=== PATIENT | female | born 1955 | race Two or more races ===

== ENCOUNTER 2024-11-27 10:09 | Emergency (ER) | payer MEDICARE, SELFPAY ==
[2024-11-27 10:10] VITALS: BMI 42.2
[2024-11-27 10:17] VITALS: BP 210/98; BP 254/103; PULSE 82; RESP 18; TEMP 36.6; O2SAT 98
--- NOTE | 2024-11-27 10:21 | EKG_ITS ---
[facility] Test Date: 2024-11-27 Pat Name: PRABHU LANDIN Department: Room: - Gender: Female Director Integrated: : 1955 Requested By: Jeff Hernadez Order Number: [id number] Reading MD: Jeff Hernadez Measurements Intervals [place] Rate: 78 P: 27 GA: 172 QRS: 29 QRSD: 105 T: 61 QT: 355 QTc: 406 Interpretive Statements SINUS RHYTHM No previous ECG available for comparison /store/S0/[id number]/ecg/[id number].pdf
--- NOTE | 2024-11-27 10:23 | XR_ITS ---
Examination: PA lateral chest 2 views TECHNIQUE: Upright PA lateral chest 2 views Date and time: November 27, 2024 1032 hours Comparison August 09, 2023 INDICATIONS: Upper abdominal pain chest pain beginning today. FINDINGS: No significant cardiac enlargement Minor atelectasis in the lower lung zones No pneumonia or pulmonary edema IMPRESSION: Minor atelectasis in the lower lung zones
--- NOTE | 2024-11-27 10:24 | PD.EDRME ---
Rapid Medical Screening Exam RME Arrival date/time: 11/27/24 10:09 69-year-old female with a history of hypertension, type 2 diabetes, hyperlipidemia presents to the emergency room with a chief complaint of 8 out of 10 epigastric pain, vomiting x 2 days I have greeted and performed a focused initial assessment of this patient. A comprehensive ED assessment and evaluation of the patient, analysis of all test results, and completion of the medical decision making process will be conducted by additional ED providers. Chief Complaint: Abdominal Pain Time Seen by Provider: 11/27/24 10:14 Vital signs: Vital Signs Temperature 97.9 F 11/27/24 10:17 Pulse Rate 82 11/27/24 10:17 Respiratory Rate 18 11/27/24 10:17 Blood Pressure 210/98 H 11/27/24 10:17 Pulse Oximetry (%) 98 11/27/24 10:17 Oxygen Delivery Method Room Air 11/27/24 10:17 Vital signs reviewed by provider: Yes
[2024-11-27 10:49] VITALS: BP 210/98; PULSE 82
[2024-11-27] MEDS: cloNIDine HCL 0.1 MG TABLET 0.2 MG PO (10:49)
[2024-11-27] MEDS: MG HYD/AL HYD/SIME (Maalox Reg) SUSP 30 ML UDC PO (10:50)
[2024-11-27 11:09] LABS: Collection Type, Urine Clean Catch
[2024-11-27 11:20] LABS: Bilirubin,Urine Negative (Negative); Blood,Urine Negative (Negative); Clarity,Urine Clear (Clear/Hazy); Color,Urine Yellow (Lt Yel-Yel); Glucose, Urine Negative (Negative); Ketones,Urine Negative (Negative); Leukocyte Esterase,Urine Positive (Negative); Nitrite,Urine Negative (Negative); Protein,Urine Trace (Neg - Trace); RBC,Urine 6 /hpf (0-3); Specific Gravity,Urine 1.028 (1.001-1.035); Squamous Epithelial Cell,Urine 4 /hpf (0-5); WBC,Urine 3 /hpf (0-5)
[2024-11-27 11:30] LABS: Basophils # (Auto) 0.1 Thou/mm3 (0.0-0.2); Basophils % (Auto) 1 % (0-2.5); Eosinophils # (Auto) 0.2 Thou/mm3 (0.0-0.5); Eosinophils % (Auto) 3 % (0-10); Hematocrit 38.1 % (36.0-46.0); Immature Granulocytes % (Auto) 0 % (0-0); Immature Granulocytes Auto 0.03 Thou/mm3 (0.00-0.00); Lymphocytes # (Auto) 3.3 Thou/mm3 (1.0-4.8); Lymphocytes % (Auto) 35 % (10-50); Mean Corpuscular HGB Conc 34.1 g/dl (31.0-37.0); Mean Corpuscular Hemoglobin 31.6 pg (25.0-35.0); Mean Corpuscular Volume 93 fL (80-100); Monocytes # (Auto) 0.6 Thou/mm3 (0.0-0.8); Monocytes % (Auto) 6 % (0-12); Neutrophils # (Auto) 5.3 Thou/mm3 (1.8-7.7); Neutrophils % (Auto) 56 % (37-80); Nucleated Red Blood Cell % 0 /100 WBC (0); Platelet Count 227 Thou/mm3 (140-440); RDW Standard Deviation 45.4 fL (36.4-46.3); Red Blood Count 4.12 Miln/mm3 (4.00-5.20); White Blood Count 9.5 Thou/mm3 (3.6-11.0)
[2024-11-27 11:36] LABS: Partial Thromboplastin Time 25.7 Seconds (22.0-36.0); Prothrombin Time 10.9 Seconds (9.0-12.2)
[2024-11-27 11:37] LABS: B-Type Natriuretic Peptide 45 pg/mL (0-100)
[2024-11-27 11:50] LABS: Alanine Aminotransferase 15 U/L (10-49); Albumin, Serum 4.1 gm/dL (3.4-4.8); Albumin/Globulin Ratio 1.5 (1.2-2.2); Alkaline Phosphatase 124 U/L (46-116); Anion Gap 11 (7-16); BUN/Creatinine Ratio 18 Ratio (12-20); Bilirubin,Total 0.3 mg/dL (0.3-1.2); Blood Urea Nitrogen 14 mg/dL (9-23); Calcium 9.9 mg/dL (8.3-10.6); Calcium (Corrected) 9.9 mg/dL (8.5-10.1); Carbon Dioxide 28.2 mMol/L (20.0-31.0); Chloride 100 mMol/L (98-107); Creatinine (Component) 0.8 mg/dL (0.6-1.3); Estimated Creatinine Clearance 71.6 mL/min (>60); Globulin 2.7 gm/dL (2.3-3.5); Glucose 148 mg/dL (74-106); Osmolality,Calculated 281 (275-295); Potassium 3.8 mMol/L (3.4-5.1); Sodium 139 mMol/L (136-145); Total Protein 6.8 gm/dL (5.7-8.2); Troponin I < 0.020 ng/mL (0.0-0.045); eGFR > 60 See Note
[2024-11-27 11:53] LABS: Magnesium 0.9 mg/dL (1.6-2.6)
[2024-11-27 12:35] VITALS: BP 153/69; BP 210/98; PULSE 71; RESP 16; TEMP 36.5; O2SAT 96
--- NOTE | 2024-11-27 12:50 | XR_ITS ---
Examination: Duplex scan of the lower extremity, unilateral left complete Date and time of exam: November 27, 2024 1328 hours INDICATIONS: Left leg pain and swelling beginning 2 weeks ago, nonocclusive thrombus in the left common femoral vein left profunda proximal left superficial femoral and popliteal veins on Doppler April 06, 2018 Technique: Duplex scan of the extremity veins using B-mode/grayscale imaging and Doppler spectral analysis and color flow Attention is directed to internal echogenicity, compression and augmentation involving these veins, color flow assessment, spectral analysis Findings: Positive for nonocclusive thrombus in the left common femoral vein 3 cm popliteal cyst IMPRESSION: Positive for nonocclusive thrombus in the left common femoral vein
--- NOTE | 2024-11-27 12:50 | XR_ITS ---
Examination: CT abdomen with intravenous contrast CT pelvis with intravenous contrast 2-D coronal reconstructions 2-D sagittal reconstructions Date and time of exam:November 27, 2024 1409 hours Comparison July 30, 2023 INDICATIONS: Upper abdominal pain nausea vomiting today. CTDI: vol (mGy) 13.3 DLP: (mGycm) 778 Technique: Multiple axial sections of the abdomen and pelvis have been obtained. 64 slice high-resolution scanner used. 3 mm axial sections have been obtained, post intravenous injection 60 cc [id number] 2-D sagittal, coronal reconstructions obtained. Low dose protocols were performed. One or more of the following dose reduction techniques were used; automated exposure control, adjustment of the mA and/or KV according to patient size, use of iterative reconstruction technique. Findings: No focal liver or splenic lesions No gallstones No pancreatic or adrenal mass No renal or ureteral calculi Small benign lower pole right renal cyst No bowel obstruction Absent appendix Small fat-containing umbilical hernia No colonic diverticulosis Atrophic uterus Urinary bladder intact Prominent osteopenia IMPRESSION: No acute process in the abdomen or pelvis
--- NOTE | 2024-11-27 12:55 | PD.EDABDPN ---
ED Abdominal Pain RME/HPI General Chief Complaint: Abdominal Pain Stated complaint: DIZZY, CHILL, ABD PAIN Time seen by provider: 11/27/24 10:14 Arrival date/time: 11/27/24 10:09 Limitations: no limitations RME / HPI RME / HPI narrative: 11/27/24 10:09 69-year-old female with a history of hypertension, type 2 diabetes, hyperlipidemia presents to the emergency room with a chief complaint of 8 out of 10 epigastric pain, vomiting x 2 days I have greeted and performed a focused initial assessment of this patient. A comprehensive ED assessment and evaluation of the patient, analysis of all test results, and completion of the medical decision making process will be conducted by additional ED providers. 69-year-old female with a history of hypertension, type 2 diabetes, hyperlipidemia presents to the emergency room with a chief complaint of 8 out of 10 epigastric pain, vomiting x 2 days. Also hx xarelto 20mg for dvt x 2 about 6yrs ago. States has a known clot stuck in her femoral that she is aware of. However has some bruising to her left leg that made her worried that she has a new clot. Does have a history of appendectomy but otherwise no abdominal surgeries. No chest pain or shortness of breath. Related Data Home Medications ?Medication ?Instructions ?Recorded ?Confirmed sitagliptin phosphate 50 1 tab PO BID 02/13/18 12/31/19 mg-metformin 1,000 mg tablet (Janumet) diltiazem HCl 60 mg tablet 60 mg PO BID 11/04/19 12/31/19 gabapentin 300 mg capsule 300 mg PO TID 11/04/19 12/31/19 propranolol 10 mg tablet 25 mg PO QDAY 11/04/19 12/31/19 rivaroxaban 20 mg tablet (Xarelto) 20 mg PO QDAY 11/04/19 12/31/19 losartan 50 mg tablet 50 mg PO QDAY 12/31/19 12/31/19 Previous Rx's ?Medication ?Instructions ?Recorded citalopram 20 mg tablet 20 mg PO QDAY #14 tabs 09/27/18 ciprofloxacin HCl 500 mg tablet 500 mg PO BID #14 tabs 06/16/23 acetaminophen 500 mg capsule 1,000 mg (2 x 500 mg) PO TID #30 07/30/23 caps dextromethorphan-guaifenesin 10 10 ml PO Q8H PRN cough #500 mL 07/30/23 mg-100 mg/5 mL oral liquid azithromycin 250 mg tablet See Rx Instructions PO .COMPLEX #6 08/10/23 tabs benzonatate 100 mg capsule 100 mg PO TID PRN cough #10 caps 08/10/23 dicyclomine 10 mg capsule 10 mg PO TID #30 caps 11/27/24 ondansetron 4 mg disintegrating 4 mg PO QDAY #10 tabs 11/27/24 tablet pantoprazole 40 mg tablet,delayed 40 mg PO QDAY #30 tabs 11/27/24 release (Protonix) Allergies Allergy/AdvReac Type Severity Reaction Status Date / Time codeine Allergy Severe Anxiety Verified 08/09/23 19:23 hydrocodone Allergy Severe Anxiety Verified 08/09/23 19:23 Review of Systems Review of Systems Systems Reviewed: All systems reviewed, normal except as documented Constitutional Constitutional: Denies fever(s) Gastrointestinal Gastrointestinal: Reports as per HPI Genitourinary Genitourinary: Denies urinary frequency Musculoskeletal Musculoskeletal: Reports as per HPI Hematologic/Lymphatic Hematologic/Lymphatic: Reports as per HPI ED Exam General Limitations: Present no limitations General appearance: Present alert and in no apparent distress Eye Eye exam: Present normal appearance, PERRL and EOMI Respiratory Respiratory exam: Present normal lung sounds bilaterally Cardiovascular Cardiovascular exam: Present regular rate, normal rhythm and normal heart sounds Abdominal Exam Abdominal exam: Present soft, tenderness (Nonspecific TTP diffuse no rebound, surgical scar noted; ) and normal bowel sounds Extremities Exam Extremities exam: Present full ROM and tenderness (Left medial ankle with ecchymosis and TTP) Back Exam Back exam: Present normal inspection and full ROM Psychiatric Psychiatric exam: Present normal affect and normal mood Skin Skin exam: Present warm, dry, intact and normal color Course Quality Measures none Orders Category Date Time Status CT Screening NOW Care 11/27/24 12:51 Completed EKG (ED ONLY) *Do not use* NOW Care 11/27/24 10:21 Completed IV [Insert IV] NOW Care 11/27/24 12:[address] abdomen pelvis w con Stat Exams 11/27/24 12:50 Completed EKG (ED Only) Stat Exams 11/27/24 10:21 Draft US venous doppler LE LT Stat Exams 11/27/24 12:50 Completed XR chest 2V Stat Exams 11/27/24 10:23 Completed B-Type Natriuretic Peptide Stat Lab 11/27/24 10:46 Completed CBC Stat Lab 11/27/24 10:46 Completed Comprehensive Metabolic Panel Stat Lab 11/27/24 10:46 Completed Magnesium Stat Lab 11/27/24 10:46 Completed Partial Thromboplastin Time Stat Lab 11/27/24 10:46 Completed Prothrombin Time with INR Stat Lab 11/27/24 10:46 Completed Troponin I Stat Lab 11/27/24 10:46 Completed Urinalysis Stat Lab 11/27/24 11:03 Completed HYDROmorphone INJ [Dilaudid Inj] Med 11/27/24 16:07 Discontinued 0.5 mg IVP X1 ONE Magnesium Sulfate 1 gm Ivpb [Magnesium Sulfate Ivpb] Med 11/27/24 12:54 Discontinued 1 gm in 100 ml IV X1 Morphine Inj Med 11/27/24 12:52 Discontinued 4 mg IVP X1 ONE Sodium Chloride 0.9% 1000 ml [Ns] 1,000 ml Med 11/27/24 12:50 Discontinued IV 999 mls/hr cloNIDine HCL [Catapres] Med 11/27/24 10:23 Discontinued 0.2 mg PO X1 ONE mg Hyd/Al Hyd/Joel Susp [Maalox Susp] Med 11/27/24 10:23 Discontinued 30 ml PO X1 ONE Vital Signs Vital signs: Vital Signs Temperature 97.9 F 11/27/24 10:17 Pulse Rate 82 11/27/24 10:17 Respiratory Rate 18 11/27/24 10:17 Blood Pressure 210/98 H 11/27/24 10:17 Pulse Oximetry (%) 98 11/27/24 10:17 Oxygen Delivery Method Room Air 11/27/24 10:17 Procedures -ED EKG Interpretation #1: Date of EK11/27/24 Time of EK:24 Rate: 78 Interpretation: Interpreted by me EKG Impression: Normal sinus rhythm, No acute ST-T changes and No ectopy Abdominal Pain MDM MDM Narrative MDM Narrative:: 69-year-old patient on blood thinners with multiple concerns. Including epigastric pain. CT scan showed renal cyst but otherwise no surgical abdomen negative for ACS negative for DVT. Patient data External records reviewed:: [facility] previous records Clinical information provided by:: patient and family Social determinants that could affect healthcare access:: other (specify) (PCP appointment on the weekend,) Patient has the following chronic illnesses:: Diabetes, hyperlipidemia, on blood thinners How is presenting disease/condition affected by chronic disease/condition?: exacerbated by Evaluation data The following diagnostics were reviewed and interpreted by me:: lab results and radiology exam(s) Lab and/or radiology exams considered but not ordered:: CTA of chest was considered given history of DVT however no new DVT noted today Interpretation Summary: CBC within normal limits, CMP did show hypomagnesemia likely from vomiting, UA was suggestive of possible UTI, Doppler did not show any new DVT but old known findings to femoral vein. Medications / Prescriptions Medications or Prescriptions considered but not ordered:: Narcotics were considered for home however due to side effect profile avoided Medication administrations:: Medication Administration History Discontinued Medications Al Hydrox/Mg Hydrox/Simethicone (Mg Hyd/Al Hyd/Joel (Maalox Reg) Susp 30 Ml Udc) 30 ml PO X1 ONE Stop: 11/27/24 10:24 Last Admin: 11/27/24 10:50 Dose: 30 ml Documented By: JLUIS Clonidine (Clonidine Hcl 0.1 Mg Tablet) 0.2 mg PO X1 ONE Stop: 11/27/24 10:24 Last Admin: 11/27/24 10:49 Dose: 0.2 mg Documented By: JLUIS Hydromorphone HCl (Hydromorphone Inj 2 Mg/Ml Vial) 0.5 mg IVP X1 ONE Stop: 11/27/24 16:08 Last Admin: 11/27/24 16:22 Dose: 0.5 mg Documented By: MUARLI Sodium Chloride (Ns) 1,000 mls @ 999 mls/hr IV .Q1H1M ONE Stop: 11/27/24 13:50 Last Infusion: 11/27/24 15:50 Dose: Infused Documented By: Admin: 11/27/24 14:28 Dose: 999 mls/hr Documented By: MURALI Magnesium Sulfate/Dextrose (Magnesium Sulfate Ivpb) 1 gm in 100 mls @ 100 mls/hr IV X1 ONE Stop: 11/27/24 13:53 Last Infusion: 11/27/24 15:50 Dose: Infused Documented By: Admin: 11/27/24 14:28 Dose: 100 mls/hr Documented By: MURALI Morphine Sulfate (Morphine Sulf Inj 10 Mg/Ml Vial) 4 mg IVP X1 ONE Stop: 11/27/24 12:53 Last Admin: 11/27/24 14:28 Dose: 4 mg Documented By: MURALI Medications for home given Consultations Consultation(s) initiated? (list below): No Diagnosis Differential diagnosis abdominal pain: abdominal pain, calculus of kidney, constipation, diverticulitis, endometriosis, gastroenteritis and pancreatitis Most likely diagnosis given after review of the tests above:: Gastritis Abdominal pain Diabetes Long-term anticoagulant use Hypomagnesemia Admission Indicated Admission indicated?: not indicated Admission Request Was there a request for admission?: No Disposition Plan Disposition Plan: Discharge Discharge Attestation Discharge Attestation: The patient and all family members were given an opportunity to ask questions and understood the discharge instructions. Discharge instructions specifically effects, indications for sooner follow up or return to the emergency department, and the expected course of current diagnosis. Patient condition: Stable Discharge Plan Plan Patient Disposition: HOME (Self Care) Discharge Disposition comment: Follow-up with PCP in 2 to 3 days Patient condition on transfer: Stable Prescriptions/Referrals Prescriptions/Med Rec: New pantoprazole [Protonix] 40 mg tablet,delayed release (DR/EC) 40 mg PO QDAY Qty: 30 0RF ondansetron 4 mg tablet,disintegrating 4 mg PO QDAY Qty: 10 0RF dicyclomine 10 mg capsule 10 mg PO TID Qty: 30 0RF No Action Janumet 50-1,000 mg Tablet 1 tab PO BID citalopram 20 mg tablet 20 mg PO QDAY Qty: 14 0RF propranolol 10 mg Tablet 25 mg PO QDAY gabapentin 300 mg Capsule 300 mg PO TID diltiazem HCl 60 mg Tablet 60 mg PO BID Xarelto 20 mg Tablet 20 mg PO QDAY losartan 50 mg tablet 50 mg PO QDAY azithromycin 250 mg tablet See Rx Instructions .ROUTE .COMPLEX Qty: 6 0RF Rx Instructions: For 250 mg dose pack: take 500 mg today (day 1), then 250 mg for 4 days (days 2-5) benzonatate 100 mg capsule 100 mg PO TID PRN (Reason: cough) Qty: 10 0RF ciprofloxacin HCl 500 mg tablet 500 mg PO BID Qty: 14 0RF dextromethorphan-guaifenesin 10-100 mg/5 mL liquid 10 ml PO Q8H PRN (Reason: cough) Qty: 500 0RF acetaminophen 500 mg capsule 1,000 mg PO TID Qty: 30 0RF Referrals: Mariia Beckford PA-C [Primary Care Provider] - In 1 week Problem List Clinical Impression: Abdominal pain, epigastric, Hypomagnesemia, Vomiting, Renal cyst, History of DVT (deep vein thrombosis) Patient/Caregiver Discharge Instructions Education Materials: ED Diet for Vomiting or ..., ED Epigastric Pain (Uncertain Cause) Print Language: Sami Stand Alone Forms: Demi Award Info., Patient Portal Info Letter PA/[employer]ITE MANAGER Supervising Physician PA/[employer]ITE MANAGER Supervising Physician: Dr. Salamanca
[2024-11-27] MEDS: Magnesium Sulfate 1 gm Ivpb 1 GM/100 ML BAG IV (14:28)
[2024-11-27] MEDS: SODIUM CHLORIDE 0.9% 1000 ML 1,000 ML 999 ML IV (14:28)
[2024-11-27] MEDS: MORPHINE SULF INJ 10 MG/ML VIAL 4 MG IVP (14:28)
[2024-11-27 16:14] VITALS: BP 144/60; PULSE 68; RESP 17; TEMP 36.3; O2SAT 95
[2024-11-27] MEDS: HYDROmorphone INJ 2 MG/ML VIAL 0.5 MG IVP (16:22)
== END 2024-11-27 16:39 | disposition home or self-care (01) ==
PROVIDERS: Nurse Practitioner Family; Emergency Provider Family Medicine; PCP Physician Assistant
DX: N28.1 Cyst of kidney, acquired (principal); E83.42 Hypomagnesemia; I82.412 Acute embolism and thrombosis of left femoral vein; R11.10 Vomiting, unspecified; R10.13 Epigastric pain; R07.9 Chest pain, unspecified; I10 Essential (primary) hypertension; E78.5 Hyperlipidemia, unspecified; Z79.01 Long term (current) use of anticoagulants
CPT/HCPCS: 36415; 71046; 74177; 80053; 81001; 83735; 83880; 84484; 85025; 85610; 85730; 93005; 93971; 96365; 96375; 99285; A4649; J1171; J2270; J3475; J7030; Q9967; A9270

== ENCOUNTER 2024-11-30 09:07 | Inpatient (IN) | payer MEDICARE, MEDICAID, SELFPAY ==
[2024-11-30] VITALS (34 sets, daily range): BP systolic 159–275; BP diastolic 66–137; PULSE 81–126; RESP 11–88; TEMP 36.6–37.7; O2SAT 85–96; BMI 42.2
--- NOTE | 2024-11-30 09:26 | PD.EDADULT ---
ED General RME/HPI General Chief complaint: Abdominal Pain Stated complaint: SOB, BODY ACHES, N/V, ABD PAIN; STARTED Time Seen by Provider: 11/30/24 09:11 Arrival date/time: 11/30/24 09:07 Limitations: no limitations RME / HPI RME / HPI narrative: DR. HARVEY MAIN ED EVALUATION: 69 year old female with past medical history significant for hypertension presents to the Emergency Department with complaint of epigastric abdominal pain. She was seen on 11/27/24 for the same symptoms. She mentions that she has epigastric pain when she breaths. No other symptoms reported at this time. Related Data Home Medications ?Medication ?Instructions ?Recorded ?Confirmed sitagliptin phosphate 50 1 tab PO BID 02/13/18 12/31/19 mg-metformin 1,000 mg tablet (Janumet) diltiazem HCl 60 mg tablet 60 mg PO BID 11/04/19 12/31/19 gabapentin 300 mg capsule 300 mg PO TID 11/04/19 12/31/19 rivaroxaban 20 mg tablet (Xarelto) 20 mg PO QDAY 11/04/19 12/01/24 losartan 50 mg tablet 50 mg PO QDAY 12/31/19 12/31/19 furosemide 40 mg tablet 40 mg PO QDAY 12/01/24 12/01/24 insulin glargine 100 unit/mL (3 30 unit subcut HS 12/01/24 12/01/24 mL) subcutaneous pen (Lantus Solostar U-100 Insulin) levothyroxine 25 mcg tablet 25 mcg PO QDAY 12/01/24 12/01/24 propranolol 20 mg tablet 20 mg PO QDAY 12/01/24 12/01/24 semaglutide 0.25 mg or 0.5 mg (2 0.25 mg subcut .q wednesday12/01/24 12/01/24 mg/3 mL) subcutaneous pen injector (Ozempic) Previous Rx's ?Medication ?Instructions ?Recorded citalopram 20 mg tablet 20 mg PO QDAY #14 tabs 09/27/18 ciprofloxacin HCl 500 mg tablet 500 mg PO BID #14 tabs 06/16/23 acetaminophen 500 mg capsule 1,000 mg (2 x 500 mg) PO TID #30 07/30/23 caps dextromethorphan-guaifenesin 10 10 ml PO Q8H PRN cough #500 mL 07/30/23 mg-100 mg/5 mL oral liquid azithromycin 250 mg tablet See Rx Instructions PO .COMPLEX #6 08/10/23 tabs benzonatate 100 mg capsule 100 mg PO TID PRN cough #10 caps 08/10/23 dicyclomine 10 mg capsule 10 mg PO TID #30 caps 11/27/24 ondansetron 4 mg disintegrating 4 mg PO QDAY #10 tabs 11/27/24 tablet pantoprazole 40 mg tablet,delayed 40 mg PO QDAY #30 tabs 11/27/24 release (Protonix) Allergies Allergy/AdvReac Type Severity Reaction Status Date / Time codeine Allergy Severe Anxiety Verified 11/30/24 09:11 hydrocodone Allergy Severe Anxiety Verified 11/30/24 09:11 Review of Systems Review of Systems Systems Reviewed: All systems reviewed, normal except as documented Narrative Review of Systems: GEN: No fever, no chills, no weight loss EYES: No discharge, no visual changes, no pain HEENT: No ear pain, no congestion, no sore throat PULM: No shortness of breath, no cough, no congestion CV: No chest pain, no dyspnea on exertion, no palpitations GI: No nausea, no vomiting, no diarrhea, + abdominal pain, no constipation : No frequency, no urgency and no dysuria MUSC/SKEL: No joint pain, no back pain SKIN: No rash PSYCH: No hallucinations, no depression HEME/LYMPH: No easy bleeding or bruising tendencies NEURO: No weakness, no headache Past Medical History Past Medical History CARDIAC: Positive Hypercholesterolemia, Edema, Deep Vein Thrombosis and Hypertension GASTROINTESTINAL: Positive Gastrointestinal Disorders, Gastroesophageal Reflux Disease and Obesity MUSCULOSKELETAL: Positive Musculoskeletal Disorders and Arthritis ENDOCRINE: Positive Endocrine Disorders and Diabetes Mellitus Type 2 PSYCHO/SOCIAL: Positive Depression and Anxiety Family History FAMILY HISTORY: Positive Family Surgery Surgical History SURGICAL: Positive Abdominal Surgery and Section Social History SMOKING STATUS: Never smoker SECOND HAND EXPOSURE: No SUBSTANCE USE: does not use ALCOHOL: Never ED Exam General Limitations: Present no limitations General appearance: Present alert and in no apparent distress Head Head exam: Present atraumatic, normocephalic and normal inspection Eye Eye exam: Present normal appearance, PERRL and EOMI ENT ENT exam: Present normal exam, normal oropharynx and mucous membranes moist Neck Neck exam: Present normal inspection, full ROM and trachea midline Chest Chest inspection: Present normal inspection and symmetric chest wall rise Respiratory Respiratory exam: Present normal lung sounds bilaterally Cardiovascular Cardiovascular exam: Present regular rate, normal rhythm and normal heart sounds Abdominal Exam Abdominal exam: Present tenderness (diffuse abdominal pain), normal bowel sounds and hyperactive bowel sounds Extremities Exam Extremities exam: Present normal inspection and full ROM Back Exam Back exam: Present normal inspection and full ROM Neurological Exam Neurological exam: Present alert, oriented X3 and CN II-XII intact Psychiatric Psychiatric exam: Present normal affect and normal mood Skin Skin exam: Present warm, dry, intact and normal color Course Quality Measures none Orders Category Date Time Status Electric Bath Attendant STAT Care 11/30/24 09:25 Active Insert IV STAT Care 11/30/24 09:25 Active CBC Stat Lab 11/30/24 09:40 Completed Comprehensive Metabolic Panel Stat Lab 11/30/24 09:40 Completed Lipase Stat Lab 11/30/24 09:40 Completed Magnesium Stat Lab 11/30/24 09:40 Completed Urinalysis Stat Lab 11/30/24 10:51 Completed Diltiazem Inj [Cardizem Inj] Med 11/30/24 14:56 Discontinued 25 mg IV X1 ONE Enalaprilat Inj [Vasotec Inj] Med 11/30/24 10:58 Discontinued 2.5 mg IVP X1 ONE Magnesium Sulfate 1 gm Ivpb [Magnesium Sulfate Ivpb] Med 11/30/24 10:59 Discontinued 1 gm in 100 ml IV X1 Metoprolol Tartrate Inj [Lopressor Inj] Med 11/30/24 09:28 Discontinued 2.5 mg IVP X1 ONE Metoprolol Tartrate Inj [Lopressor Inj] Med 11/30/24 10:34 Discontinued 5 mg IVP X1 ONE Morphine Inj Med 11/30/24 14:24 Discontinued 5 mg IVP X1 ONE Nicardipine/Ns 20Mg Ivpb [Cardene Ivpb] Med 11/30/24 16:05 Discontinued 20 mg in 200 ml IV 5 mg/hr Ondansetron Inj [Zofran Inj] Med 11/30/24 09:25 Discontinued 4 mg IVP Q1H PRN Sodium Chloride 0.9% 1000 ml [Ns] 1,000 ml Med 11/30/24 09:25 Discontinued IV 999 mls/hr fentaNYL INJ [Sublimaze Inj] Med 11/30/24 09:27 Discontinued 25 mcg IVP X1 ONE hydrALAZINE INJ [Apresoline Inj] Med 11/30/24 12:20 Discontinued 20 mg IVP X1 ONE Vital Signs Vital signs: Vital Signs Temperature 99.8 F 11/30/24 09:18 Pulse Rate 126 H 11/30/24 09:18 Respiratory Rate 18 11/30/24 09:18 Blood Pressure 194/129 H 11/30/24 09:18 Pulse Oximetry (%) 95 11/30/24 09:18 Oxygen Delivery Method Room Air 11/30/24 09:18 Critical Care Time Critical Care Time Critical Care Time: Yes Total Critical Care Time (min.): 45 Attestation: AGE Discharge Plan Plan Patient Disposition: Admit Acute Care w/in Hospital Patient condition on transfer: Stable Problem List Clinical Impression: Asymptomatic hypertensive urgency, Acute gastroenteritis MDM Narrative [facility] hospital course: I, Missy Munson am scribing for and in the presence of Dr. Harvey. Clinical Information Provided by patient other: Despite several doses of antihypertensive medications of different classes, patient's BP remained high. Eventually had to start Nicardipine drip. Her epigastric pain responded well to Morphine. Medical Records Reviewed [facility] Meds/Rx Considered, not Ordered None Labs/Rad/Tests considered, not Ordered None Chronic Illness/Social Conditions Add or document further as needed: hypertension Medication Administration(s) Medication Administration History Acetaminophen (Acetaminophen 325 Mg Tablet) 650 mg PO Q6H PRN PRN Reason: Fever >99.5 Stop: 12/30/24 20:02 Acetaminophen (Acetaminophen 325 Mg Tablet) 1,000 mg PO Q6H PRN PRN Reason: PAIN SCALE 1-3 (mild Stop: 12/30/24 20:02 Dextrose (Dextrose 50%-Water Inj 50 Ml Syringe) 25 ml IV Q15MIN PRN PRN Reason: BG 50-70 responsive npo pt Stop: 12/30/24 20:26 Dextrose (Dextrose 50%-Water Inj 50 Ml Syringe) 50 ml IV Q15MIN PRN PRN Reason: BG <50 OR BG <70 & pt unresponsive Stop: 12/30/24 20:26 Diltiazem HCl (Diltiazem Cd 120 Mg Capcr) 120 mg PO BID ANA LILIA Stop: 12/30/24 20:14 Last Admin: 11/30/24 20:32 Dose: 120 mg Documented By: BD Furosemide (Furosemide Inj 10 Mg/Ml 4ml Vial) 40 mg IVP QDAY [facility] Stop: 12/31/24 08:59 Gabapentin (Gabapentin 300 Mg Capsule) 300 mg PO TID [facility] Stop: 12/30/24 21:59 Last Admin: 12/01/24 05:05 Dose: Not Given Documented By: MLD Non-Admin Reason: Patient Refused Admin: 11/30/24 22:09 Dose: Not Given Documented By: BD Non-Admin Reason: Patient Refused Glucagon (Glucagon Inj 1 Mg Vial) 1 mg IM Q15MIN PRN PRN Reason: BG <70, and no IV access Heparin Sodium/Dextrose (Heparin In D5w Ivpb) 25,000 unit in 250 mls @ 17.636 mls/hr IV .[id number] [facility]; Protocol Stop: 12/14/24 20:14 Last Titration: 12/01/24 05:07 Dose: 16 units/kg/hr, 15.676 mls/hr Documented By: DONNA Co-signed By: ANNETTA Admin: 11/30/24 22:09 Dose: 18 units/kg/hr, 17.636 mls/hr Documented By: ISIAH Co-signed By: CORTES Insulin Human Lispro (Insulin Lispro (Admelog) 1 Unit/0.01 Ml Unit) 0 unit [facility]; Protocol Stop: 12/31/24 07:29 Labetalol HCl (Labetalol Inj 5 Mg/Ml Vial 20 Ml) 10 mg IVP Q4H PRN PRN Reason: SBP>190 Stop: 12/30/24 20:07 Levothyroxine Sodium (Levothyroxine Sodium 25 Mcg Tablet) [facility] Stop: 12/31/24 05:59 Last Admin: 12/01/24 05:05 Dose: 25 mcg Documented By: MLD Losartan Potassium (Losartan Potassium 25 Mg Tablet) 50 mg PO QDAY [facility] Stop: 12/30/24 20:14 Last Admin: 11/30/24 20:32 Dose: 50 mg Documented By: BD Morphine Sulfate (Morphine Sulf Inj 10 Mg/Ml Vial) 2 mg IVP Q4H PRN PRN Reason: PAIN SCALE 4-10(Mod-Sev Stop: 12/05/24 20:02 Last Admin: 11/30/24 22:50 Dose: 2 mg Documented By: ISIAH Ondansetron HCl (Ondansetron Inj 2 Mg/Ml Inj 2 Ml) 4 mg IVP Q6H PRN; Protocol PRN Reason: NAUSEA OR VOMITING Stop: 12/30/24 20:02 Pantoprazole Sodium (Pantoprazole Inj 40 Mg Vial) 40 mg IVP QDAY [facility] Stop: 12/31/24 08:59 Propranolol HCl (Propranolol Cr 60 Mg Capcr) 20 mg PO QDAY [facility] Stop: 12/31/24 00:19 Discontinued Medications Diltiazem HCl (Diltiazem Inj 5 Mg/Ml Vial 5 Ml) 25 mg IV X1 ONE Stop: 11/30/24 14:57 Last Admin: 11/30/24 15:12 Dose: 25 mg Documented By: DB Enalaprilat (Enalaprilat Inj 1.25 Mg/Ml Vial) 2.5 mg IVP X1 ONE Stop: 11/30/24 10:59 Last Admin: 11/30/24 11:21 Dose: 2.5 mg Documented By: SLY Fentanyl Citrate (Fentanyl Cit Inj 50 Mcg/Ml Amp 2ml) 25 mcg IVP X1 ONE Stop: 11/30/24 09:28 Last Admin: 11/30/24 09:47 Dose: 25 mcg Documented By: SLY Heparin Sodium (Porcine) (Heparin Sod Inj 5000 Unit/Ml Vial) 7,850 unit 80 unit/kg (7850 unit) IV X1 ONE; Protocol Stop: 11/30/24 20:04 Last Admin: 11/30/24 22:07 Dose: 7,850 unit Documented By: ISIAH Co-signed By: CORTES Hydralazine HCl (Hydralazine Inj 20 Mg/Ml Vial) 20 mg IVP X1 ONE Stop: 11/30/24 12:21 Last Admin: 11/30/24 12:27 Dose: 20 mg Documented By: SLY Sodium Chloride (Ns) 1,000 mls @ 999 mls/hr IV .Q1H1M ONE Stop: 11/30/24 10:25 Last Infusion: 11/30/24 10:49 Dose: Infused Documented By: Admin: 11/30/24 09:41 Dose: 999 mls/hr Documented By: VG Magnesium Sulfate/Dextrose (Magnesium Sulfate Ivpb) 1 gm in 100 mls @ 100 mls/hr IV X1 ONE Stop: 11/30/24 11:58 Last Infusion: 11/30/24 12:34 Dose: Infused Documented By: Admin: 11/30/24 11:22 Dose: 100 mls/hr Documented By: VG Nicardipine/Sodium Chloride (Cardene Ivpb) 20 mg in 200 mls @ 50 mls/hr IV .Q4H PRN; Protocol PRN Reason: PER PROTOCOL Stop: 12/30/24 16:04 Last Titration: 11/30/24 18:15 Dose: Infused Documented By: Titration: 11/30/24 18:10 Dose: 3 mg/hr, 30 mls/hr Documented By: Titration: 11/30/24 18:05 Dose: 3 mg/hr, 30 mls/hr Documented By: Titration: 11/30/24 18:00 Dose: 3 mg/hr, 30 mls/hr Documented By: Titration: 11/30/24 17:55 Dose: 15 mg/hr, 150 mls/hr Documented By: Titration: 11/30/24 17:50 Dose: 15 mg/hr, 150 mls/hr Documented By: Titration: 11/30/24 17:45 Dose: 15 mg/hr, 150 mls/hr Documented By: Titration: 11/30/24 17:40 Dose: 15 mg/hr, 150 mls/hr Documented By: Titration: 11/30/24 17:35 Dose: 13 mg/hr, 130 mls/hr Documented By: Titration: 11/30/24 17:30 Dose: 10.5 mg/hr, 105 mls/hr Documented By: Titration: 11/30/24 17:25 Dose: 8 mg/hr, 80 mls/hr Documented By: Titration: 11/30/24 17:20 Dose: 5.5 mg/hr, 55 mls/hr Documented By: Titration: 11/30/24 17:10 Dose: 3 mg/hr, 30 mls/hr Documented By: Titration: 11/30/24 17:05 Dose: 15 mg/hr, 150 mls/hr Documented By: Titration: 11/30/24 17:00 Dose: 12.5 mg/hr, 125 mls/hr Documented By: Titration: 11/30/24 16:55 Dose: 10 mg/hr, 100 mls/hr Documented By: Titration: 11/30/24 16:50 Dose: 7.5 mg/hr, 75 mls/hr Documented By: Admin: 11/30/24 16:45 Dose: 5 mg/hr, 50 mls/hr Documented By: VG Magnesium Sulfate (Magnesium Sulfate Ivpb) 4 gm in 50 mls @ 12.5 mls/hr IV X1 ONE Stop: 12/01/24 00:14 Last Admin: 11/30/24 22:14 Dose: 12.5 mls/hr Documented By: BD Magnesium Sulfate (Magnesium Sulfate Ivpb) 2 gm in 50 mls @ 25 mls/hr IV X1 ONE Stop: 11/30/24 22:14 Last Infusion: 11/30/24 22:08 Dose: Infused Documented By: Admin: 11/30/24 20:32 Dose: 25 mls/hr Documented By: BD Labetalol HCl (Labetalol Inj 5 Mg/Ml Vial 20 Ml) 10 mg IVP Q6H PRN PRN Reason: SBP>190 Stop: 12/30/24 20:14 Metoprolol Tartrate (Metoprolol Tartrate Inj 1 Mg/Ml Amp 5 Ml) 2.5 mg IVP X1 ONE Stop: 11/30/24 09:29 Last Admin: 11/30/24 09:49 Dose: 2.5 mg Documented By: SLY Metoprolol Tartrate (Metoprolol Tartrate Inj 1 Mg/Ml Amp 5 Ml) 5 mg IVP X1 ONE Stop: 11/30/24 10:35 Last Admin: 11/30/24 10:47 Dose: 5 mg Documented By: DB Morphine Sulfate (Morphine Sulf Inj 10 Mg/Ml Vial) 5 mg IVP X1 ONE Stop: 11/30/24 14:25 Last Admin: 11/30/24 14:38 Dose: 5 mg Documented By: DB Morphine Sulfate (Morphine Sulf Inj 10 Mg/Ml Vial) 1 mg IVP X1 ONE Stop: 12/01/24 01:59 Last Admin: 12/01/24 02:08 Dose: 1 mg Documented By: MLFaisal Ondansetron HCl (Ondansetron Inj 2 Mg/Ml Inj 2 Ml) 4 mg IVP Q1H PRN PRN Reason: PERSISTENT NAUSEA OR VOMITING Last Admin: 11/30/24 18:53 Dose: 4 mg Documented By: Admin: 11/30/24 09:52 Dose: 4 mg Documented By: SLY Diagnosis Differential diagnosis: GERD, gastritis, gallbladder disease Dispositon Disposition: Admit
[2024-11-30] MEDS: SODIUM CHLORIDE 0.9% 1000 ML 1,000 ML 999 ML IV (09:41)
[2024-11-30] MEDS: fentaNYL CIT INJ 50 mCg/ML AMP 2ML 25 MCG IVP (09:47)
[2024-11-30] MEDS: METOPROLOL TARTRATE INJ 1 MG/ML AMP 5 ML 2.5 MG IVP (09:49)
[2024-11-30 09:52] LABS: Basophils % (Auto) 0 % (0-2.5); Eosinophils % (Auto) 0 % (0-10); Hematocrit 39.1 % (36.0-46.0); Hemoglobin 13.3 g/dL (12.0-16.0); Immature Granulocytes % (Auto) 0 % (0-0); Immature Granulocytes Auto 0.02 Thou/mm3 (0.00-0.00); Lymphocytes # (Auto) 1.1 Thou/mm3 (1.0-4.8); Lymphocytes % (Auto) 16 % (10-50); Mean Corpuscular Volume 94 fL (80-100); Monocytes # (Auto) 0.4 Thou/mm3 (0.0-0.8); Monocytes % (Auto) 6 % (0-12); Neutrophils # (Auto) 5.5 Thou/mm3 (1.8-7.7); Neutrophils % (Auto) 77 % (37-80); Nucleated Red Blood Cell % 0 /100 WBC (0); Platelet Count 183 Thou/mm3 (140-440); RDW Standard Deviation 46.1 fL (36.4-46.3); Red Blood Count 4.15 Miln/mm3 (4.00-5.20); White Blood Count 7.1 Thou/mm3 (3.6-11.0)
[2024-11-30] MEDS: ONDANSETRON INJ 2 MG/ML INJ 2 ML 4 MG IVP ×2 (09:52→18:53)
[2024-11-30 10:29] LABS: Alanine Aminotransferase 27 U/L (10-49); Albumin, Serum 4.3 gm/dL (3.4-4.8); Albumin/Globulin Ratio 1.7 (1.2-2.2); Alkaline Phosphatase 127 U/L (46-116); Anion Gap 10 (7-16); BUN/Creatinine Ratio 13 Ratio (12-20); Bilirubin,Total 0.4 mg/dL (0.3-1.2); Blood Urea Nitrogen 10 mg/dL (9-23); Calcium 9.8 mg/dL (8.3-10.6); Calcium (Corrected) 9.8 mg/dL (8.5-10.1); Carbon Dioxide 27.6 mMol/L (20.0-31.0); Chloride 98 mMol/L (98-107); Creatinine (Component) 0.8 mg/dL (0.6-1.3); Globulin 2.5 gm/dL (2.3-3.5); Glucose 196 mg/dL (74-106); Lipase 41 U/L (12-53); Osmolality,Calculated 275 (275-295); Potassium 3.9 mMol/L (3.4-5.1); Sodium 136 mMol/L (136-145); Total Protein 6.8 gm/dL (5.7-8.2); eGFR > 60 See Note
[2024-11-30 10:37] LABS: Magnesium 0.8 mg/dL (1.6-2.6)
[2024-11-30] MEDS: METOPROLOL TARTRATE INJ 1 MG/ML AMP 5 ML 5 MG IVP (10:47)
[2024-11-30 11:03] LABS: Collection Type, Urine Clean Catch
[2024-11-30 11:08] LABS: Bilirubin,Urine Negative (Negative); Blood,Urine Negative (Negative); Clarity,Urine Clear (Clear/Hazy); Color,Urine Lt-Yellow (Lt Yel-Yel); Glucose, Urine Negative (Negative); Ketones,Urine Negative (Negative); Leukocyte Esterase,Urine Negative (Negative); Nitrite,Urine Negative (Negative); PH,Urine 6.5 (5.0-7.0); Protein,Urine Negative (Neg - Trace); RBC,Urine < 1 /hpf (0-3); Specific Gravity,Urine 1.014 (1.001-1.035); Squamous Epithelial Cell,Urine 2 /hpf (0-5); Urobilinogen,Urine Negative mg/dL (0.0-1.0); WBC,Urine 2 /hpf (0-5)
[2024-11-30] MEDS: ENALAPRILAT INJ 1.25 MG/ML VIAL 2.5 MG IVP (11:21)
[2024-11-30] MEDS: Magnesium Sulfate 1 gm Ivpb 1 GM/100 ML BAG IV (11:22)
[2024-11-30] MEDS: hydrALAZINE INJ 20 MG/ML VIAL IVP (12:27)
--- NOTE | 2024-11-30 14:30 | PC.NURSE ---
pt reports continued upper abd pain, provider notified. orders received.
[2024-11-30] MEDS: MORPHINE SULF INJ 10 MG/ML VIAL 5 MG IVP (14:38)
[2024-11-30] MEDS: DILTIAZEM INJ 5 MG/ML VIAL 5 ML 25 MG IV (15:12)
[2024-11-30] MEDS: NICARDIPINE/NS 20MG IVPB 20 MG/200 ML BAG 50 MG IV (16:45)
--- NOTE | 2024-11-30 18:15 | PC.NURSE ---
DR BARRETO AT BEDSIDE. PER DR BARRETO, STOP NICARDIPINE DRIP. SPOKE WITH DR BARRETO ABOUT PTS UPPER ABD PAIN, LOW O2 SATS, AND PAST VISIT RESULTS. PER DR BARRETO, WILL PASS ON TO ADMITTING TEAM FOR FURTHER WORKUP.
--- NOTE | 2024-11-30 18:31 | EVENTNT_ITS ---
<Statement entered by Burke Barreto MD - 12/01/24 09:26> I reviewed the resident?s note and agree with findings and plan as documented in the resident?s note. resident discussed case with me OTP. When evaluated in ED pt was off nicardipine - no headache, chest pain or new SOB no acute ICU interventions planned if pt condition changes and meets ICU criteria - I informed resident to accept pt to ICU Documentation for date of: 11/30/24 Event Note Event Note: Patient is a 69-year-old female seen in the ED with a blood pressure of 275/103. Patient was treated with multiple antihypertensives including labetalol, hydralazine and nicardipine drip. Patient's blood pressure dropped from 275 systolic to 150?160s systolic with nicardipine drip. In the ED, patient's blood pressure changes in 24 hours have been > 25 x 30% Recommendation: Discontinue nicardipine drip at this time, therefore will not need ICU admission. Goal BP 180-190 systolic over next 24 hours. Of note, duplex ultrasound from 11/27/2024 was remarkable for femoral thrombosis. Patient has been tachycardic in the ED HR 110?120s bpm, with intermittent hypoxia. Recommendation: Consider anticoagulation and PE workup with CTA chest. Medical floor teams to admit patient, ED physician was informed. Patient to be admitted to telemetry for hypertensive management and PE workup. Plan discussed with bolt threader Dr. Barreto, ? Frank Leavitt MD PGY 2
--- NOTE | 2024-11-30 20:03 | XR_ITS ---
Examination: CTA chest with intravenous contrast 2-D reconstructions 3-D reconstructions, vascular Date and time of exam: Using 12 2024 and 15 p.m. INDICATIONS: Shortness of breath chest pain today CTDI: vol (mGy) 42 DLP: (mGycm) 606 Technique: Multiple axial sections of the thorax have been obtained. 3 mm slice thickness, from below the hemidiaphragms to above the apices of the lungs. Mediastinal and lung density settings have been obtained. 2-D sagittal and coronal reconstructions. 3-D angiographic renderings, 3-D volume renderings, 3D post processing, vascular maximum intensity projections obtained. Contrast administered is 100 cc Isovue 370. Low dose protocols were performed. One or more of the following dose reduction techniques were used; automated exposure control, adjustment of the mA and/or KV according to patient size, use of iterative reconstruction technique. Findings: No thoracic aortic aneurysm dilatation or dissection Moderate thoracic spondylosis No pulmonary artery filling defects No paratracheal tracheobronchial or bronchopulmonary adenopathy Mild vascular congestion. No lobar pneumonia or dora pulmonary edema No visualized liver or splenic lesion No pancreatic mass. IMPRESSION: Negative for pulmonary artery emboli. Mild vascular congestion No lobar pneumonia or pulmonary edema
--- NOTE | 2024-11-30 20:03 | ECHO_ITS ---
Transthoracic Echo Report Ht (in): 60 Wt (lb): 216 Exam Location: Echo Lab Status: Emergency Lead Software Architect: Doris Pitt Indications: Procedure Performed: BP: 132 / 71 HR: 97 Technical Quality: Technically difficult study MEASUREMENTS (Male / Female) Normal Values 2D ECHO LV Diastolic Diameter PLAX 3.9 cm 4.2 - 5.9 / 3.9 - 5.3 cm LV Systolic Diameter PLAX 2.9 cm IVS Diastolic Thickness 1.5 cm 0.6 - 1.0 / 0.6 - 0.9 cm LVPW Diastolic Thickness 1.4 cm 0.6 - 1.0 / 0.6 - 0.9 cm LV Relative Wall Thickness 0.7 LVOT Diameter 1.7 cm Aortic Root Diameter 2.8 cm LA Systolic Diameter LX 3.1 cm 3.0 - 4.0 / 2.7 - 3.8 cm LA Volume Index 17.7 cm?/m? 16 - 28 cm?/m? M-MODE Aortic Root Diameter MM 2.6 cm LA Systolic Diameter MM 3.5 cm LA Ao Ratio MM 1.3 AV Cusp Separation MM 1.8 cm DOPPLER AV Peak Velocity 138.0 cm/s AV Peak Gradient 7.6 mmHg AV Mean Gradient 4.0 mmHg AV Velocity Time Integral 25.6 cm LVOT Peak Velocity 123.0 cm/s LVOT Peak Gradient 6.1 mmHg LVOT Velocity Time Integral 25.0 cm LVOT Cardiac Index 2627.7 cm?/min?m? AV Area Cont Eq vti 2.2 cm? AV Area Cont Eq pk 2.0 cm? MV Area PHT 3.1 cm? Mitral E Point Velocity 39.3 cm/s Mitral A Point Velocity 65.5 cm/s Mitral E to A Ratio 0.6 LV E' Lateral Velocity 6.0 cm/s Mitral E to LV E' Lateral Ratio 6.6 LV E' Septal Velocity 4.6 cm/s Mitral E to LV E' Septal Ratio 8.6 TR Peak Velocity 186.0 cm/s TR Peak Gradient 13.8 mmHg FINDINGS Left Ventricle Normal left ventricular size,systolic function with no obvious regional wall motion abnormalities. Moderate LVH. There is grade I diastolic dysfunction of the left ventricle (impaired relaxation pattern). The ejection fraction is visually estimated at 55-60 %. Right Ventricle The right ventricle is normal in size and systolic function. Left Atrium The left atrium is normal by two-dimensional, color flow and Doppler imaging with no structural abnormalities, no thrombus formation present. Right Atrium The right atrium is normal by two-dimensional imaging, color flow and Doppler imaging with no structural abnormalities, no thrombus formation present. Atrial Septum The interatrial septum appears normal with no evidence of a shunt. Aorta The aorta is normal by two-dimensional, color flow and Doppler interrogation. Mitral Valve The mitral valve is normal by two-dimensional, color flow and Doppler interrogation. There is no significant mitral valve regurgitation, stenosis or prolapse. Aortic Valve The aortic valve is trileaflet and normal by two-dimensional, color flow and Doppler interrogation. There is no significant aortic valve regurgitation. Tricuspid Valve The tricuspid valve is normal by two-dimensional, color flow and Doppler interrogation. There is trace tricuspid valve regurgitation. Pulmonic Valve The pulmonic valve is not well visualized. There is no significant pulmonic valve regurgitation. Vessels Inferior vena cava not well visualized. Pericardium The pericardium is normal by two-dimensional imaging. There is no significant pericardial effusion. CONCLUSIONS Indication: Hx of CHF Normal LV size. Moderate LVH. There is grade I diastolic dysfunction of the left ventricle. Estimated EF at 55-60 %. The RV is normal in size and systolic function. Trace TR. Kusum Chavez (Electronically Signed) Final Date: 02 December 2024 00:27
--- NOTE | 2024-11-30 20:21 | PD.RESHP ---
Documentation for date of: 11/30/24 [facility] History of Present Illness Chief complaint: Hypertensive emergency History of present illness: 69-year-old female with past medical history of diabetes, hypertension, arthritis, hypothyroidism who presented to the ED due to abdominal pain. Patient states abdominal pain rated 8 out of 10 across the whole abdomen. Patient states she gets this abdominal pain every time her blood pressure is elevated. When asked about her blood pressure at home she says usually her blood pressure at home is between 170 and 180 systolic. Patient states that she is compliant with all her medications. Patient also states some associated chills, nausea but no vomiting as well as a headache. Patient states she came to the ER few days ago for similar symptoms, was found with DVT on November 27 was taking Xarelto and is currently complaining of shortness of breath. At this time patient denies chest pain, palpitations, orthopnea, PND, vomiting, recent travel, sick contacts. ED course: ED vitals: BP 194/129, HR 126, saturating 95% on room air ED labs: CBC unremarkable, glucose 196, magnesium 0.8, UA negative PMHx: As above SX Hx: , appendectomy, knee and hand surgery Social Hx: Denies cigarette use, denies alcohol use, denies illicit substances including THC FH X: Unknown Review of Systems Review of Systems Systems Reviewed: All systems reviewed, normal except as documented Narrative Review of Systems: All 12 systems were reviewed and found negative unless otherwise stated in the HPI Exam Vital Signs Temp Pulse Resp BP Pulse Ox O2 Del Method O2 Flow Rate 98.1 F 103 H 12 167/73 H 94 L Nasal Cannula 2 11/30/24 18:02 11/30/24 19:26 11/30/24 19:26 11/30/24 18:02 11/30/24 19:26 11/30/24 18:02 11/30/24 19:26 Narrative Exam Physical Exam GENERAL: NAD, AAOx3, obese, flushed HEENT: Moist mucosa. Eyes open, symmetrical, & clear CARDIO: Heart RRR, no obvious murmurs PULM: No noted coughing/dyspnea CTA B/L, no R/W/R GI: Abdomen soft, nondistended, pain on palpation. BSx4 SKIN/MSK/EXT: Mild swelling of bilateral lower extremities, no pain on palpation. Pedal pulses present B/L NEURO: AAOx3, no focal neuro deficits, able to move all 4 extremities Results: Labs 12/01/24 04:18 12/01/24 04:18 Labs: Short CBC 11/30/24 Range/Units 09:40 WBC 7.1 (3.6-11.0) Thou/mm3 Hgb 13.3 (12.0-16.0) g/dL Hct 39.1 (36.0-46.0) % Plt Count 183 D (140-440) Thou/mm3 BMP 11/30/24 09:40 Sodium 136 Potassium 3.9 Chloride 98 Carbon Dioxide 27.6 BUN 10 Creatinine 0.8 Glucose 196 H Calcium 9.8 Liver Function 11/30/24 Range/Units 09:40 Total Bilirubin 0.4 (0.3-1.2) mg/dL ALT 27 (10-49) U/L Alkaline Phosphatase 127 H (46-116) U/L Albumin 4.3 (3.4-4.8) gm/dL Urine 11/30/24 Range/Units 10:51 Urine Color Lt-Yellow (Lt Yel-Yel) Urine Clarity Clear (Clear/Hazy) Urine pH 6.5 (5.0-7.0) Ur Specific [place] 1.014 (1.001-1.035) Urine Protein Negative (Neg - Trace) Urine Glucose (UA) Negative (Negative) Quality Measures Quality Measures none Advance care planning discussed with:: patient Medications Home Medications and Allergies Home Medications ?Medication ?Instructions ?Recorded ?Confirmed ?Type sitagliptin phosphate 50 1 tab PO BID 02/13/18 12/31/19 History mg-metformin 1,000 mg tablet (Janumet) diltiazem HCl 60 mg tablet 60 mg PO BID 11/04/19 12/31/19 History gabapentin 300 mg capsule 300 mg PO TID 11/04/19 12/31/19 History rivaroxaban 20 mg tablet (Xarelto) 20 mg PO QDAY 11/04/19 12/01/24 History losartan 50 mg tablet 50 mg PO QDAY 12/31/19 12/31/19 History furosemide 40 mg tablet 40 mg PO QDAY 12/01/24 12/01/24 History insulin glargine 100 unit/mL (3 30 unit subcut HS 12/01/24 12/01/24 History mL) subcutaneous pen (Lantus Solostar U-100 Insulin) levothyroxine 25 mcg tablet 25 mcg PO QDAY 12/01/24 12/01/24 History propranolol 20 mg tablet 20 mg PO QDAY 12/01/24 12/01/24 History semaglutide 0.25 mg or 0.5 mg (2 0.25 mg subcut .q wednesday12/01/24 12/01/24 History mg/3 mL) subcutaneous pen injector (Ozempic) Allergies Allergy/AdvReac Type Severity Reaction Status Date / Time codeine Allergy Severe Anxiety Verified 11/30/24 09:11 hydrocodone Allergy Severe Anxiety Verified 11/30/24 09:11 Visit Medications Acetaminophen (Acetaminophen 325 Mg Tablet) 650 mg PO Q6H PRN PRN Reason: Fever >99.5 Stop: 12/30/24 20:02 Acetaminophen (Acetaminophen 325 Mg Tablet) 1,000 mg PO Q6H PRN PRN Reason: PAIN SCALE 1-3 (mild Stop: 12/30/24 20:02 Diltiazem HCl (Diltiazem Cd 120 Mg Capcr) 120 mg PO BID ANA LILIA Stop: 12/30/24 20:14 Heparin Sodium (Porcine) (Heparin Sod Inj 5000 Unit/Ml Vial) 7,850 unit 80 unit/kg (7850 unit) IV X1 ONE; Protocol Stop: 11/30/24 20:04 Nicardipine/Sodium Chloride (Cardene Ivpb) 20 mg in 200 mls @ 50 mls/hr IV .Q4H PRN; Protocol PRN Reason: PER PROTOCOL Stop: 12/30/24 16:04 Last Titration: 11/30/24 18:15 Dose: Infused Heparin Sodium/Dextrose (Heparin In D5w Ivpb) 25,000 unit in 250 mls @ 17.636 mls/hr IV .[id number] ANA LILIA; Protocol Stop: 12/14/24 20:14 Magnesium Sulfate (Magnesium Sulfate Ivpb) 4 gm in 50 mls @ 12.5 mls/hr IV X1 ONE Stop: 12/01/24 00:14 Magnesium Sulfate (Magnesium Sulfate Ivpb) 2 gm in 50 mls @ 25 mls/hr IV X1 ONE Stop: 11/30/24 22:14 Labetalol HCl (Labetalol Inj 5 Mg/Ml Vial 20 Ml) 10 mg IVP Q6H PRN PRN Reason: SBP>190 Stop: 12/30/24 20:14 Losartan Potassium (Losartan Potassium 25 Mg Tablet) 50 mg PO QDAY COUNT INCLUDES THE [facility] Stop: 12/30/24 20:14 Morphine Sulfate (Morphine Sulf Inj 10 Mg/Ml Vial) 2 mg IVP Q4H PRN PRN Reason: PAIN SCALE 4-10(Mod-Sev Stop: 12/05/24 20:02 Ondansetron HCl (Ondansetron Inj 2 Mg/Ml Inj 2 Ml) 4 mg IVP Q6H PRN; Protocol PRN Reason: NAUSEA OR VOMITING Stop: 12/30/24 20:02 Pantoprazole Sodium (Pantoprazole Inj 40 Mg Vial) 40 mg IVP QDAY COUNT INCLUDES THE [facility] Stop: 12/31/24 08:59 Discontinued Medications Diltiazem HCl (Diltiazem Inj 5 Mg/Ml Vial 5 Ml) 25 mg IV X1 ONE Stop: 11/30/24 14:57 Last Admin: 11/30/24 15:12 Dose: 25 mg Enalaprilat (Enalaprilat Inj 1.25 Mg/Ml Vial) 2.5 mg IVP X1 ONE Stop: 11/30/24 10:59 Last Admin: 11/30/24 11:21 Dose: 2.5 mg Fentanyl Citrate (Fentanyl Cit Inj 50 Mcg/Ml Amp 2ml) 25 mcg IVP X1 ONE Stop: 11/30/24 09:28 Last Admin: 11/30/24 09:47 Dose: 25 mcg Hydralazine HCl (Hydralazine Inj 20 Mg/Ml Vial) 20 mg IVP X1 ONE Stop: 11/30/24 12:21 Last Admin: 11/30/24 12:27 Dose: 20 mg Sodium Chloride (Ns) 1,000 mls @ 999 mls/hr IV .Q1H1M ONE Stop: 11/30/24 10:25 Last Infusion: 11/30/24 10:49 Dose: Infused Magnesium Sulfate/Dextrose (Magnesium Sulfate Ivpb) 1 gm in 100 mls @ 100 mls/hr IV X1 ONE Stop: 11/30/24 11:58 Last Infusion: 11/30/24 12:34 Dose: Infused Metoprolol Tartrate (Metoprolol Tartrate Inj 1 Mg/Ml Amp 5 Ml) 2.5 mg IVP X1 ONE Stop: 11/30/24 09:29 Last Admin: 11/30/24 09:49 Dose: 2.5 mg Metoprolol Tartrate (Metoprolol Tartrate Inj 1 Mg/Ml Amp 5 Ml) 5 mg IVP X1 ONE Stop: 11/30/24 10:35 Last Admin: 11/30/24 10:47 Dose: 5 mg Morphine Sulfate (Morphine Sulf Inj 10 Mg/Ml Vial) 5 mg IVP X1 ONE Stop: 11/30/24 14:25 Last Admin: 11/30/24 14:38 Dose: 5 mg Ondansetron HCl (Ondansetron Inj 2 Mg/Ml Inj 2 Ml) 4 mg IVP Q1H PRN PRN Reason: PERSISTENT NAUSEA OR VOMITING Last Admin: 11/30/24 18:53 Dose: 4 mg Assessment & Plan Plan 69-year-old female with past medical history of hypertension, diabetes, arthritis, hypothyroidism who presented to the ED with abdominal pain. Patient will be admitted for hypertensive emergency. #Hypertensive emergency In the ED patient was placed on nicardipine drip, originally was, be admitted to ICU however nicardipine drip was discontinued was decided to admit to the floors Patient with abdominal pain, headaches, shortness of breath, blood pressures at home show systolic 170?180 per patient Systolic blood pressure currently 190 ? Diltiazem 120 mg twice daily ? Labetalol IV as needed ? Consider resuming nicardipine drip ? Monitor telemetry #DVT #? Pulmonary embolism DVT found on venous ultrasound on November 27, 2024 was on Xarelto Wells score: 6 ? Heparin drip ? Follow-up CTA #HFpEF[55-60%] Presented with clinical signs such as shortness of breath, dyspnea on exertion, bilateral leg swelling, Last echo: 2018: Normal cardiac chamber size with normal LV systolic function & LVEF 55 to 60 % Mild concentric LV hypertrophy with decreased LV diastolic compliance, Mild tricuspid regurgitation, Trace mitral regurgitation ? Echo ordered ? IV Lasix 40mg IV qday ? Keep K>4, Mg>2 ? Provide oxygen as required ? Strict I's and O's #Diabetes mellitus type 2 #Peripheral neuropathy Last A1c:13.9 (2018) ? SSI ? Hypoglycemia protocol in place ? Gabapentin 300 mg 3 times daily as taken at home #Hypothyroidism ?Resume levothyroxine as taken at home Health Maintenance: Disposition: Telemetry, hypertensive emergency Fluids: None Feeding: Low-sodium diet Thrombo prophylaxis: Heparin drip Gastric Ulcer prophylaxis: Pantoprazole CODE STATUS: Full code Case discussed with my attending Dr. Haresh Henderson MD PGY-1 Disclaimer: Despite multiple revisions, due to the dictation software being used, the document bellow may not be free of grammatical errors including phonetic/typographic errors. However, this does not deter from our commitment to providing health care in the patient's best interest in mind. Attending Provider Attestation/Addendum I reviewed labs, imaging, EKG, home medications and prior available records. Face to face evaluation was performed by me. I have personally examined the patient and discussed assessment and plan with the IM team. I reviewed the resident note and agree with the plan with exceptions as below. Hypertensive emergency History of hypertension History of HFpEF Type 2 diabetes mellitus Left lower extremity DVT Hypothyroidism She is off nicardipine drip. She can mention telemetry floor Started p.o. diltiazem. Continue IV labetalol as needed Avoid rapid correction of BP. Goal is 25% reduction until the morning Start heparin drip Order CT chest with angiography to rule out PE Start sliding scale insulin and monitor fingersticks Resume home levothyroxine
[2024-11-30] MEDS: LOSARTAN POTASSIUM 25 MG TABLET 50 MG PO (20:32)
[2024-11-30] MEDS: DILTIAZEM CD 120 MG CAPCR PO (20:32)
[2024-11-30] MEDS: Magnesium Sulfate 2 GM Ivpb 2 GM/50 ML BAG IV (20:32)
--- NOTE | 2024-11-30 20:35 | PC.NURSE ---
Addendum entered by Ann Marie Sandoval RN 11/30/24 22:07: PROVIDER WAS DR.TORRES MICHAEL PADILLA Original Note: CALLED HE WANTS BOTH MG ORDERS OF THE 2GRAMS AND THE 4GRAMS
[2024-11-30 20:53] LABS: Partial Thromboplastin Time 29.9 Seconds (22.0-36.0)
[2024-11-30] MEDS: HEPARIN SOD INJ 5000 UNIT/ML VIAL 7850 UNIT IV (22:07)
[2024-11-30] MEDS: Heparin/D5w 25K 250 ML Ivpb 25,000 UNIT/250 ML BAG 17.636 UNIT IV (22:09)
[2024-11-30] MEDS: Magnesium Sulfate 4 GM Ivpb 4 GM/50 ML BAG IV (22:14)
--- NOTE | 2024-11-30 22:15 | PC.LAC ---
CALLED DR. KILGORE WITH PT UPDATED B/P OF ADVISED TO HOLD THE PRN LABETALOL AT THIS TIME HE STATED HE DOES NOT WANT TO DROP PT B/P TO FAST ADVISED I WILL CONTINUE TO UPDATE VITALS. HE WANTED TO WAIT ANOTHER HOUR TO DECIDE IF PT SHOULD GET PRN LEBETALOL.
[2024-11-30] MEDS: MORPHINE SULF INJ 10 MG/ML VIAL 2 MG IVP (22:50)
--- NOTE | 2024-11-30 23:31 | PC.NURSE ---
REPORT RECEIVED FROM [facility] ED.
[2024-12-01] VITALS (9 sets, daily range): BP systolic 132–185; BP diastolic 68–95; PULSE 78–99; RESP 14–20; TEMP 36.1–36.7; O2SAT 95–98; BMI 417.4
--- NOTE | 2024-12-01 00:29 | PC.NURSE ---
pt can recall some of her home meds and RN updated list. pt will have daughter bring in all meds in am.
[2024-12-01] MEDS: MORPHINE SULF INJ 10 MG/ML VIAL IVP (02:08)
[2024-12-01 04:30] LABS: Basophils % (Auto) 0 % (0-2.5); Eosinophils % (Auto) 0 % (0-10); Hemoglobin 13.3 g/dL (12.0-16.0); Immature Granulocytes % (Auto) 0 % (0-0); Immature Granulocytes Auto 0.02 Thou/mm3 (0.00-0.00); Lymphocytes # (Auto) 2.2 Thou/mm3 (1.0-4.8); Lymphocytes % (Auto) 27 % (10-50); Mean Corpuscular HGB Conc 34.1 g/dl (31.0-37.0); Mean Corpuscular Hemoglobin 31.7 pg (25.0-35.0); Mean Corpuscular Volume 93 fL (80-100); Monocytes # (Auto) 0.6 Thou/mm3 (0.0-0.8); Monocytes % (Auto) 8 % (0-12); Neutrophils # (Auto) 5.5 Thou/mm3 (1.8-7.7); Neutrophils % (Auto) 65 % (37-80); Nucleated Red Blood Cell % 0 /100 WBC (0); Platelet Count 155 Thou/mm3 (140-440); RDW Standard Deviation 46.8 fL (36.4-46.3); Red Blood Count 4.19 Miln/mm3 (4.00-5.20); White Blood Count 8.4 Thou/mm3 (3.6-11.0)
[2024-12-01 05:04] LABS: Partial Thromboplastin Time 80.7 Seconds (22.0-36.0)
[2024-12-01 05:05] LABS: Glucose Estimated Average 154 mg/dL (80-131)
[2024-12-01] MEDS: LEVOTHYROXINE SODIUM 25 MCG TABLET PO (05:05)
[2024-12-01 05:09] LABS: Alanine Aminotransferase 25 U/L (10-49); Albumin, Serum 4.1 gm/dL (3.4-4.8); Albumin/Globulin Ratio 1.5 (1.2-2.2); Alkaline Phosphatase 117 U/L (46-116); Anion Gap 9 (7-16); Aspartate Amino Transferase 27 U/L (0-34); BUN/Creatinine Ratio 8 Ratio (12-20); Bilirubin,Total 0.4 mg/dL (0.3-1.2); Blood Urea Nitrogen 7 mg/dL (9-23); Calcium 8.7 mg/dL (8.3-10.6); Calcium (Corrected) 8.7 mg/dL (8.5-10.1); Carbon Dioxide 30.2 mMol/L (20.0-31.0); Chloride 97 mMol/L (98-107); Cholesterol 220 mg/dL (132-200); Creatinine (Component) 0.9 mg/dL (0.6-1.3); Estimated Creatinine Clearance 63.7 mL/min (>60); Globulin 2.7 gm/dL (2.3-3.5); Glucose 180 mg/dL (74-106); HDL Cholesterol 44 mg/dL (40-60); LDL Cholesterol,Calculated 136 mg/dL (0-130); Osmolality,Calculated 274 (275-295); Phosphorous 3.4 mg/dL (2.4-5.1); Potassium 4.3 mMol/L (3.4-5.1); Sodium 136 mMol/L (136-145); Total Protein 6.8 gm/dL (5.7-8.2); Triglycerides 201 mg/dL (30-150); eGFR > 60 See Note
[2024-12-01 05:10] LABS: Thyroid Stimulating Hormone 4.11 uIU/mL (0.55-4.78)
[2024-12-01] MEDS: MORPHINE SULF INJ 10 MG/ML VIAL 2 MG IVP (06:32)
[2024-12-01] MEDS: INSULIN LISPRO (AdmeLOG) 1 UNIT/0.01 ML UNIT SC ×2 (08:00→18:25)
[2024-12-01] MEDS: PANTOPRAZOLE INJ 40 MG VIAL IVP (09:32)
[2024-12-01] MEDS: DILTIAZEM CD 120 MG CAPCR PO ×2 (09:32→20:33)
[2024-12-01] MEDS: FUROSEMIDE INJ 10 MG/ML 4ML VIAL 40 MG IVP (09:32)
[2024-12-01] MEDS: LOSARTAN POTASSIUM 25 MG TABLET 50 MG PO (09:32)
[2024-12-01 10:48] LABS: Lactate (Lactic Acid) 2.1 mMol/L (0.4-2.0)
[2024-12-01] MEDS: Heparin/D5w 25K 250 ML Ivpb 25,000 UNIT/250 ML BAG 15.676 UNIT IV (11:36)
--- NOTE | 2024-12-01 12:05 | ESPR_ITS ---
<Statement entered by Anand Pang MD - 12/02/24 14:16> I discussed with and supervised the internet marketing executive physician involved in the care of this patient. Patient assessment and plan was discussed with entire medicine team, including my attending. I agree with the assessment and plan as documented by internet marketing executive doctor. Patient care was discussed with my attending physician Dr. Princess Pang, PGY-2 Documentation for date of: 12/01/24 Subjective Subjective Interval history: Patient was seen and examined by the bedside. Daughter at the bedside. Patient reports abdominal pain, points at epigastric area. Blood pressure 166/95, resumed some of her home BP medications, will gradually lower the BP. According to the daughter, patient has been experiencing epigastric pain for sometime but she usually does not complain. The patient also reports feeling nauseous. Lactic acid 2.1. 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 Will discontinue heparin drip and start Eliquis for DVT treatment. Plan is to discharge on Eliquis. Started maalox for epigastric pain. Exam Vital Signs Temp Pulse Resp BP Pulse Ox O2 Del Method O2 Flow Rate 97.8 F 88 14 166/95 H 97 Nasal Cannula 2 12/01/24 08:00 12/01/24 11:00 12/01/24 11:00 12/01/24 09:32 12/01/24 11:00 12/01/24 08:00 12/01/24 11:00 Narrative Exam Physical Exam General: Awake and in no acute distress. Conversational and non-toxic appearing. HEENT: Normocephalic, atraumatic, mucous membranes moist. Heart: Regular rate and rhythm, no murmurs. Lungs: Clear to auscultation with no wheezing or crackles. Abdomen: Soft, nondistended, epigastric tenderness, positive bowel sounds. ?No guarding or rebound tenderness. Neurologic: Alert and oriented x3, no gross neurological deficit, and patient able to move all 4 extremities. Extremities: No edema. Skin: No rash or ecchymoses. Objective Labs 12/02/24 05:00 12/02/24 06:50 Labs: Laboratory Results - last 24 hr 11/30/24 12/01/24 12/01/24 20:20 04:18 10:40 WBC 8.4 RBC 4.19 Hgb 13.3 Hct 39.0 MCV 93 MCH 31.7 MCHC 34.1 RDW Std Deviation 46.8 H Plt Count 155 Neut % (Auto) 65 Lymph % (Auto) 27 [place] % (Auto) 8 Eos % (Auto) 0 Baso % (Auto) 0 Neut # (Auto) 5.5 Lymph # (Auto) 2.2 [place] # (Auto) 0.6 Eos # (Auto) 0.0 Baso # (Auto) 0.0 Immature Gran # (Auto) 0.02 H Absolute Nucleated RBC 0.00 Immature Gran % 0 Nucleated RBC % 0 APTT 29.9 80.7 H D 64.0 H D Sodium 136 Potassium 4.3 Chloride 97 L Carbon Dioxide 30.2 Anion Gap 9 BUN 7 L Creatinine 0.9 Estim Creat Clear Calc 63.7 eGFR > 60 BUN/Creatinine Ratio 8 L Glucose [address] Glu mg/dL 154 H Hemoglobin A1c 7.0 H Calculated Osmolality 274 L Lactic Acid 2.1 H Calcium 8.7 Corrected Calcium 8.7 Phosphorus 3.4 Magnesium 2.0 Total Bilirubin 0.4 AST 27 ALT 25 Alkaline Phosphatase 117 H Total Protein 6.8 Albumin 4.1 Globulin 2.7 Albumin/Globulin Ratio 1.5 Triglycerides 201 H Cholesterol 220 H LDL Cholesterol, Calc 136 H HDL Cholesterol 44 Cholesterol/HDL Ratio 5.0 TSH 4.11 Quality Measures Quality Measures VTE prophylaxis and VTE therapy Advance care planning discussed with:: other Assessment & Plan Assessment Current Active Medications: Generic Name Dose Route Start Last Admin Trade Name Freq PRN Reason Stop Dose Admin Acetaminophen 650 mg 11/30/24 20:03 Acetaminophen 325 Mg Tablet PO 12/30/24 20:02 Q6H PRN Fever >99.5 Acetaminophen 1,000 mg 12/01/24 10:13 Acetaminophen 500 Mg Tablet PO 12/30/24 20:02 Q6H PRN PAIN SCALE 1-3 (mild Dextrose 25 ml 11/30/24 20:27 Dextrose 50%-Water Inj 50 Ml Syringe IV 12/30/24 20:26 Q15MIN PRN BG 50-70 responsive npo pt Dextrose 50 ml 11/30/24 20:27 Dextrose 50%-Water Inj 50 Ml Syringe IV 12/30/24 20:26 Q15MIN PRN BG <50 OR BG <70 & pt unresponsive Diltiazem HCl 120 mg 11/30/24 20:15 12/01/24 09:32 Diltiazem Cd 120 Mg Capcr PO 12/30/24 20:14 120 mg BID ANA LILIA Administration Furosemide 40 mg 12/01/24 09:00 12/01/24 09:32 Furosemide Inj 10 Mg/Ml 4ml Vial IVP 12/31/24 08:59 40 mg QDAY ANA LILIA Administration Gabapentin 300 mg 11/30/24 22:00 12/01/24 05:05 Gabapentin 300 Mg Capsule PO 12/30/24 21:59 Not Given TID ANA LILIA Glucagon 1 mg 11/30/24 20:27 Glucagon Inj 1 Mg Vial IM Q15MIN PRN BG <70, and no IV access Heparin Sodium/Dextrose 25,000 unit in 250 mls @ 17.636 mls/hr 11/30/24 20:15 12/01/24 11:36 Heparin In D5w Ivpb IV 12/14/24 20:14 16 units/kg/hr .[id number] ANA LILIA 15.676 mls/hr Administration Protocol 18 UNITS/KG/HR Insulin Human Lispro 0 unit 12/01/24 07:30 12/01/24 08:00 Insulin Lispro (Admelog) 1 Unit/0.01 Ml Unit SC 12/31/24 07:29 1 unit AC ANA LILIA Administration Protocol Labetalol HCl 10 mg 11/30/24 23:11 Labetalol Inj 5 Mg/Ml Vial 20 Ml IVP 12/30/24 20:07 Q4H PRN SBP>190 Levothyroxine Sodium 25 mcg 12/01/24 06:00 12/01/24 05:05 Levothyroxine Sodium 25 Mcg Tablet PO 12/31/24 05:59 25 mcg ACBR ANA LILIA Administration Losartan Potassium 50 mg 11/30/24 20:15 12/01/24 09:32 Losartan Potassium 25 Mg Tablet PO 12/30/24 20:14 50 mg QDAY ANA LILIA Administration Morphine Sulfate 2 mg 11/30/24 20:03 12/01/24 06:32 Morphine Sulf Inj 10 Mg/Ml Vial IVP 12/05/24 20:02 2 mg Q4H PRN Administration PAIN SCALE 4-10(Mod-Sev Ondansetron HCl 4 mg 11/30/24 20:03 Ondansetron Inj 2 Mg/Ml Inj 2 Ml IVP 12/30/24 20:02 Q6H PRN NAUSEA OR VOMITING Protocol Pantoprazole Sodium 40 mg 12/01/24 09:00 12/01/24 09:32 Pantoprazole Inj 40 Mg Vial IVP 12/31/24 08:59 40 mg QDAY ANA LILIA Administration Plan 69-year-old female with past medical history of hypertension, diabetes, arthritis, hypothyroidism who presented to the ED with abdominal pain. Patient will be admitted for hypertensive emergency. #Hypertensive emergency, resolving In the ED patient was placed on nicardipine drip, originally was, be admitted to ICU however nicardipine drip was discontinued was decided to admit to the floors Patient with abdominal pain, headaches, shortness of breath, blood pressures at home show systolic 170?180 per patient Plan: - gradually decreased BP ? Diltiazem 120 mg twice daily ? Labetalol IV as needed - [place] 50 mg qday ? Monitor telemetry #DVT #Pulmonary embolism ruled out DVT found on venous ultrasound on November 27, 2024 was on Xarelto. Previously also had DVT. Chest CTA was negative for PE. Wells score: 6 Plan: ? Heparin drip discontinued 12/01/24 - Eliquis 10 mg BID for 5 days, then Eliquis 5 mg BID ? Follow-up with systems admin outpatient - Hypercoagulation panel #HFpEF, EF 55-60%, stable Presented with clinical signs such as shortness of breath, dyspnea on exertion, bilateral leg swelling, Last echo: 2018: Normal cardiac chamber size with normal LV systolic function & LVEF 55 to 60 % Mild concentric LV hypertrophy with decreased LV diastolic compliance, Mild tricuspid regurgitation, Trace mitral regurgitation Plan: ? Echo ordered ? IV Lasix 40mg IV qday ? Keep K>4, Mg>2 ? Provide oxygen as required ? Strict I's and O's #Diabetes mellitus type 2 #Peripheral neuropathy Last A1c:13.9 (2018) ? SSI ? Hypoglycemia protocol in place ? Gabapentin 300 mg 3 times daily as taken at home #Hypothyroidism ?Resumed levothyroxine Health Maintenance: Disposition: Telemetry Fluids: None Feeding: Low-sodium diet DVT treatment: Eliquis 10 mg for 5 days Gastric Ulcer prophylaxis: Pantoprazole CODE STATUS: Full code Plan of care discussed with attending Dr. Sánchez, PGY-[address] Pang. Lisa Bazan MD, PGY 1. Attending Provider Attestation/Addendum I attest that I was physically present for the evaluation, physical examination, lab and imaging review of the patient with the residents. I discussed the case with the residents and agree with the findings and plans of care as documented above. Patient continues to complain of abdominal pain, mostly around epigastric region. Blood pressure has improved slightly compared to yesterday. Resumed her home medications, we will continue to monitor blood pressure closely. Also stated that she has fibromyalgia for which she follows with her PCP. Started on Eliquis for her DVT, this is patient's third time presenting with DVT. Patient was on Xarelto at home. We will also obtain hypercoagulation panel. Continues to be on Lasix for HFpEF. Continues to be on levothyroxine for hypothyroidism and insulin regimen for diabetes. Renetta Sánchez MD
[2024-12-01 13:44] LABS: Reflex Lactate? Y
--- NOTE | 2024-12-01 14:00 | CHAP ---
Patient visited by he Spiritual Care Volunteer who prayed silently for them. (Volunteer in hospital from 13:00-c14:30)
[2024-12-01 15:14] LABS: Lactic Acid, 3 HR 1.1 mMol/L (0.4-2.0)
[2024-12-01] MEDS: APIXABAN 2.5 MG TABLET 10 MG PO ×2 (16:00→20:32)
[2024-12-01 18:20] LABS: Partial Thromboplastin Time 75.1 Seconds (22.0-36.0)
[2024-12-01] MEDS: GABAPENTIN 300 MG CAPSULE PO (21:44)
[2024-12-02] VITALS (12 sets, daily range): BP systolic 121–158; BP diastolic 55–74; PULSE 82–90; RESP 12–83; TEMP 36.1–36.7; O2SAT 83–96; BMI 39.2
[2024-12-02] MEDS: GABAPENTIN 300 MG CAPSULE PO ×2 (05:31→14:31)
[2024-12-02] MEDS: LEVOTHYROXINE SODIUM 25 MCG TABLET PO (05:31)
[2024-12-02 06:20] LABS: Basophils % (Auto) 0 % (0-2.5); Eosinophils % (Auto) 1 % (0-10); Hematocrit 37.9 % (36.0-46.0); Immature Granulocytes % (Auto) 0 % (0-0); Immature Granulocytes Auto 0.02 Thou/mm3 (0.00-0.00); Lymphocytes # (Auto) 2.1 Thou/mm3 (1.0-4.8); Lymphocytes % (Auto) 37 % (10-50); Mean Corpuscular HGB Conc 34.3 g/dl (31.0-37.0); Mean Corpuscular Hemoglobin 32.1 pg (25.0-35.0); Mean Corpuscular Volume 94 fL (80-100); Monocytes # (Auto) 0.5 Thou/mm3 (0.0-0.8); Monocytes % (Auto) 8 % (0-12); Neutrophils # (Auto) 3.1 Thou/mm3 (1.8-7.7); Neutrophils % (Auto) 54 % (37-80); Nucleated Red Blood Cell % 0 /100 WBC (0); Platelet Count 197 Thou/mm3 (140-440); RDW Standard Deviation 46.7 fL (36.4-46.3); Red Blood Count 4.05 Miln/mm3 (4.00-5.20); White Blood Count 5.8 Thou/mm3 (3.6-11.0)
[2024-12-02 06:33] LABS: INR 1.2 (0.9-1.3); Partial Thromboplastin Time 30.7 Seconds (22.0-36.0); Prothrombin Time 12.6 Seconds (9.0-12.2)
[2024-12-02] MEDS: INSULIN LISPRO (AdmeLOG) 1 UNIT/0.01 ML UNIT SC ×3 (07:22→17:06)
[2024-12-02 07:42] LABS: Alanine Aminotransferase 26 U/L (10-49); Albumin, Serum 3.9 gm/dL (3.4-4.8); Albumin/Globulin Ratio 1.5 (1.2-2.2); Alkaline Phosphatase 103 U/L (46-116); Anion Gap 9 (7-16); Aspartate Amino Transferase 30 U/L (0-34); BUN/Creatinine Ratio 10 Ratio (12-20); Bilirubin,Total 0.4 mg/dL (0.3-1.2); Blood Urea Nitrogen 10 mg/dL (9-23); Calcium 8.7 mg/dL (8.3-10.6); Calcium (Corrected) 8.8 mg/dL (8.5-10.1); Carbon Dioxide 32.8 mMol/L (20.0-31.0); Chloride 94 mMol/L (98-107); Globulin 2.6 gm/dL (2.3-3.5); Glucose 166 mg/dL (74-106); Magnesium 1.4 mg/dL (1.6-2.6); Osmolality,Calculated 274 (275-295); Phosphorous 2.9 mg/dL (2.4-5.1); Potassium 4.2 mMol/L (3.4-5.1); Sodium 136 mMol/L (136-145); Total Protein 6.5 gm/dL (5.7-8.2); eGFR > 60 See Note
[2024-12-02] MEDS: MORPHINE SULF INJ 10 MG/ML VIAL 2 MG IVP (09:20)
[2024-12-02] MEDS: LOSARTAN POTASSIUM 25 MG TABLET 50 MG PO (09:21)
[2024-12-02] MEDS: DILTIAZEM CD 120 MG CAPCR PO (09:21)
[2024-12-02] MEDS: FUROSEMIDE INJ 10 MG/ML 4ML VIAL 40 MG IVP (09:21)
[2024-12-02] MEDS: APIXABAN 2.5 MG TABLET 10 MG PO ×2 (09:22→20:48)
[2024-12-02] MEDS: PANTOPRAZOLE INJ 40 MG VIAL IVP (09:22)
--- NOTE | 2024-12-02 14:36 | ESDS_ITS ---
<Statement entered by Anand Pang MD - 12/03/24 12:18> I discussed with and supervised the medical intern physician involved in the care of this patient. Patient assessment and plan was discussed with entire medicine team, including my attending. I agree with the assessment and plan as documented by medical intern doctor. Patient care was discussed with my attending physician Dr. Princess Pang, PGY-2 Planned Discharge Date 12/02/24 DS: Providers Provider Date of admission: 11/30/24 20:03 Primary care physician: Mariia Beckford PA-C Admitting Provider: Vini Hutson MD Attending Provider on Admission: Vini Hutson MD Attending Provider on DC: Lisa Bazan MD Discharging Provider: Lisa Bazan MD DS: Diagnosis Problem List Completed Was Problem List Reviewed/Reconciled?: Yes Hospital Course Hospital Course Hospital course: The patient is a 69-year-old female with a previous medical history of fibromyalgia, diabetes, hypertension, arthritis, hypothyroidism that was brought to the ED on 11/30/2024 due to abdominal pain. Abdominal pain was located in the whole abdomen. She was found to have a blood pressure of 180 and 170. She was also diagnosed with DVT on December 07 and was taking Xarelto. She was also reporting shortness of breath. In the ED she was hypertensive, was started on chronic nicardipine drip, was tachycardic, saturating well on room air. Labs were mainly unremarkable. CTA was negative for signs of PE, pneumonia. Echo showed ejection fraction of 55-60%. Initially she was started on heparin drip, then she was switched to Eliquis. Her home blood pressure medications were resumed. On 12/02/2024 she reports improvement of her pain, but she continues to have generalized body pain that is chronic. This is her third episode of DVT. Hypercoagulation tests were sent, pending results. We explaine the risks and benefits of taking Eliquis and explained that when on Eliquis, patient should try to avoid falls and We had an extensive discussion regarding the fu rther plan of care, and need to follow-up with PCP for the results hypercoag panel, obtain a referral for sleep study, fibromyalgia treatment. She was seen and examined by the bedside and was medically cleared for discharge on 12/02/2024. Hospital diagnoses: #Hypertensive emergency, resolved #DVT on Eliquis #Pulmonary embolism ruled out #HFpEF, EF 55-60%, stable #Diabetes mellitus type 2 #Peripheral neuropathy #Hypothyroidism Discharge recommendations: - Follow-up with your PCP and follow-up on the results of hypercoagulation work- up - Obtain a referral for sleep study from your PCP - Follow-up with brake specialist - Follow-up with orthopaedic technologist - Stop taking Xarelto 20 mg every day - Take Eliquis 5 mg two time a day - Take tizanidine 2 mg every 8 hours as needed for muscle cramps - Continue with the rest of the medication as prescribed - If your symptoms worsen, come to the ED or call 911 Plan of care discussed with attending Dr. kaufman, PGY-[address] kaufman and PGY-[address] kaufman. Lisa Bazan MD, PGY 1. Time Spent with Patient Time attestation: Total time spent providing and/or coordinating discharge services: Time spent: Greater than 30 minutes Quality: Stroke Pt Provided Written Stroke Discharge Instructions: No (NO STROKE S/S) Exam Vital Signs Temp Pulse Resp BP Pulse Ox O2 Del Method O2 Flow Rate 97.2 F 90 13 130/66 92 L Nasal Cannula 3 12/02/24 12:12/02/24 12:12/02/24 12:12/02/24 12:12/02/24 12:12/02/24 12:12/02/24 12:00 Narrative Exam Physical Exam General: Awake and in no acute distress. Conversational and non-toxic appearing. HEENT: Normocephalic, atraumatic, mucous membranes moist. Heart: Regular rate and rhythm, no murmurs. Lungs: Clear to auscultation with no wheezing or crackles. Abdomen: Soft, nondistended, non tenderness, positive bowel sounds. ?No guarding or rebound tenderness. Neurologic: Alert and oriented x3, no gross neurological deficit, and patient able to move all 4 extremities. Extremities: No edema. Skin: No rash or ecchymoses. Discharge Plan Plan Patient Disposition: HOME (Self Care) Patient condition on transfer: Stable Care Plan Goals: Discharge recommendations: - Follow-up with your PCP and follow-up on the results of hypercoagulation work- up - Recommended to use oxygen 2l and recommended to monitor saturations - Obtain a referral for sleep study from your PCP - Follow-up with brake specialist - Follow-up with orthopaedic technologist - Stop taking Xarelto 20 mg every day - Take Eliquis 5 mg two time a day - Take tizanidine 2 mg every 8 hours as needed for muscle cramps - Continue with the rest of the medication as prescribed - If your symptoms worsen, come to the ED or call 911 Prescriptions/Referrals Prescriptions/Med Rec: New Eliquis 5 mg tablet 5 mg PO BID 30 Days Qty: 60 3RF Rx Instructions: Take one tablet two times a day tizanidine 2 mg tablet 2 mg PO Q8H PRN (Reason: muscle spasticity) 30 Days Qty: 90 0RF Rx Instructions: Take one tablet every 8 hours as needed for muscle spasm Continued citalopram 20 mg tablet 20 mg PO QDAY Qty: 14 0RF levothyroxine 25 mcg tablet 25 mcg PO QAM insulin glargine [Lantus Solostar U-100 Insulin] 100 unit/mL (3 mL) insulin pen 30 unit SUBCUT HS furosemide 40 mg tablet 40 mg PO QDAY Ozempic 0.25 mg or 0.5 mg (2 mg/3 mL) pen injector 0.25 mg SUBCUT .q wednesday propranolol 20 mg tablet 20 mg PO QDAY metformin 1,000 mg tablet 1,000 mg PO BID diltiazem HCl 120 mg capsule,extended release 24 hr 120 mg PO DAILY baclofen 10 mg tablet 10 mg PO BID PRN (Reason: muscle spasm) acetaminophen 500 mg capsule 500 mg PO Q4H PRN (Reason: pain) pantoprazole [Protonix] 40 mg tablet,delayed release (DR/EC) 40 mg PO QDAY Qty: 30 0RF ondansetron 4 mg tablet,disintegrating 4 mg PO QDAY Qty: 10 0RF dicyclomine 10 mg capsule 10 mg PO TID Qty: 30 0RF Discontinued Xarelto 20 mg Tablet 20 mg PO QDAY Referrals: Mariia Beckford PA-C [Primary Care Provider] - Patient/Caregiver Discharge Instructions Discharge Activity: wear oxygen at all times Education Materials: ED Fibromyalgia Print Language: Uzbek Stand Alone Forms: Demi Award Info., Patient Portal Info Letter Discharge Order Discharge Orders: Discharge (Routine); Ordered 12/02/24 Ordered By: Lisa Bazan Quality Discharge Quality Measures VTE prophylaxis MD Attestestation MD Attestation I attest that I was physically present for the evaluation, physical examination, lab and imaging review of the patient with the residents. I discussed the case with the residents and agree with the findings and plans of care as documented above. Renetta Sánchez MD
--- NOTE | 2024-12-02 14:56 | PC.SS ---
Addendum entered by Garima Hicks 12/02/24 16:16: DME oxygen order accepted by [facility] [phone];[employer] sanitation truck driver dispatched and will deliver Oxygen at bedside at 1700. MERY Vargas informed of ETA for delivery. Addendum entered by Garima Hicks 12/02/24 15:49: SS informed patient will be needing home oxygen. SS met with patient at bedside to confirm home address: [address] [place] [address] [place] [id number] for oxygen delivery. DME oxygen referrals submitted via [facility] to the following DME companies: [employer], [employer], [employer], [facility], [employer], and [employer]. SS awaiting response from accepting DME companies. Original Note: Patient is discharged in a chronic stable state and has been treated optimally and has other respiratory needs. Oxygen has been ordered due to dyspnea on extertion and shortness of breath.
--- NOTE | 2024-12-02 15:25 | PC.NURSE ---
0996 Patient currently showing oxygen sats at 94% on 2 L via nasal cannula, denies any shortness of breath. I removed oxygen to evaluate room air sats. 1017 geotechnical engineering technician called to notify that oxygen at 83%. Pt on room air showing oxygen sats at 83% and stating she felt short of breath. Nasal cannula at 2L reapplied.
--- NOTE | 2024-12-02 18:23 | PC.NURSE ---
Discharge instructions given to patient and family member. Due to home pharmacy being closed pt will be on hold until night dose given of eliquis. Patient is aware once dose is given she may be discharged home. Pt and family verbalized understanding of poc for discharge and the use of oxygen at home
[2024-12-07 06:43] LABS: Antithrombin III, Activity 90 % normal (80-135); Antithrombin III, Antigen 93 % normal (80-120); Hexagonal Phase Confirm WEAKLY POSITIVE (NEGATIVE); PTT-LA Screen 158 seconds (< OR = 40); Protein C Antigen, Total* 117 % normal (70-140); Protein S Antigen, Total* 123 % normal (70-140); Thrombin Clotting Time >100 sec (13-19); dRVVT Screen 43 seconds (< OR = 45)
== END 2024-12-02 21:01 | disposition home or self-care (01) | DRG 305 ==
LOC: SERX 10:46 → SERHOLD 20:16 → S2NX 23:43
PROVIDERS: Emergency Medicine; Student in an Organized Health Care Education/Training Program; Admitting Provider Student in an Organized Health Care Education/Training Program; Emergency Provider Emergency Medicine; PCP Physician Assistant; Visit Provider Student in an Organized Health Care Education/Training Program
DX: I16.1 Hypertensive emergency (principal); I50.30 Unspecified diastolic (congestive) heart failure; I82.402 Acute embolism and thrombosis of unspecified deep veins of left lower extremity; I11.0 Hypertensive heart disease with heart failure; K21.9 Gastro-esophageal reflux disease without esophagitis; E03.9 Hypothyroidism, unspecified; R09.02 Hypoxemia; E11.40 Type 2 diabetes mellitus with diabetic neuropathy, unspecified; G89.29 Other chronic pain; Z79.01 Long term (current) use of anticoagulants; Z79.4 Long term (current) use of insulin; Z79.890 Hormone replacement therapy; Z79.899 Other long term (current) drug therapy
CPT/HCPCS: 36415; 71275; 80053; 80061; 81001; 83036; 83090; 83605; 83690; 83735; 84100; 84443; 85025; 85300; 85301; 85302; 85305; 85610; 85613; 85730; 86146; 86147; 86148; 93306; 96365; 96366; 96367; 96375; 99291; A4649; J0360; J1644; J1815; J1938; J2270; J2404; J2405; J2470; J3010; J3475; J3490; J7030; Q9967; A9270

== ENCOUNTER 2024-12-13 10:13 | Emergency (ER) | payer MEDICARE, MEDICAID, SELFPAY ==
[2024-12-13 10:22] VITALS: BP 172/91; BP 193/83; PULSE 71; RESP 20; O2SAT 97; BMI 36.9
--- NOTE | 2024-12-13 10:26 | EKG_ITS ---
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
--- NOTE | 2024-12-13 10:32 | XR_ITS ---
Examination: PA chest single view TECHNIQUE: Upright PA chest single view Date and time: December 13, 2024 1037 hours INDICATIONS: Chest pain short of breath beginning 2 days ago. FINDINGS: Normal heart size No pneumonia or pulmonary edema Moderate osteopenia IMPRESSION: No pneumonia or pulmonary edema
--- NOTE | 2024-12-13 10:32 | PD.EDRME ---
Rapid Medical Screening Exam RME Arrival date/time: 12/13/24 10:13 69-year-old female presents Emergency Department today for complaint abdominal pain, chest pain, shortness of breath patient had recent admission recent DVT Chief Complaint: Shortness of Breath/Dyspnea Time Seen by Provider: 12/13/24 10:25 Vital signs: Vital Signs Pulse Rate 71 12/13/24 10:22 Respiratory Rate 20 12/13/24 10:22 Blood Pressure 193/83 H 12/13/24 10:22 Pulse Oximetry (%) 97 12/13/24 10:22 Oxygen Delivery Method Nasal Cannula 12/13/24 10:22 Oxygen Flow Rate 2 12/13/24 10:22
[2024-12-13 10:58] LABS: Basophils % (Auto) 0 % (0-2.5); Eosinophils # (Auto) 0.2 Thou/mm3 (0.0-0.5); Eosinophils % (Auto) 2 % (0-10); Hematocrit 37.8 % (36.0-46.0); Hemoglobin 13.1 g/dL (12.0-16.0); Immature Granulocytes % (Auto) 0 % (0-0); Immature Granulocytes Auto 0.02 Thou/mm3 (0.00-0.00); Lymphocytes # (Auto) 3.2 Thou/mm3 (1.0-4.8); Lymphocytes % (Auto) 35 % (10-50); Mean Corpuscular HGB Conc 34.7 g/dl (31.0-37.0); Mean Corpuscular Hemoglobin 31.9 pg (25.0-35.0); Mean Corpuscular Volume 92 fL (80-100); Monocytes # (Auto) 0.6 Thou/mm3 (0.0-0.8); Monocytes % (Auto) 7 % (0-12); Neutrophils # (Auto) 4.9 Thou/mm3 (1.8-7.7); Neutrophils % (Auto) 55 % (37-80); Nucleated Red Blood Cell % 0 /100 WBC (0); Platelet Count 313 Thou/mm3 (140-440); RDW Standard Deviation 44.5 fL (36.4-46.3); Red Blood Count 4.11 Miln/mm3 (4.00-5.20); White Blood Count 8.9 Thou/mm3 (3.6-11.0)
[2024-12-13 11:10] LABS: INR 1.1 (0.9-1.3); Partial Thromboplastin Time 28.7 Seconds (22.0-36.0); Prothrombin Time 12.4 Seconds (9.0-12.2)
[2024-12-13 11:14] LABS: B-Type Natriuretic Peptide 20 pg/mL (0-100)
[2024-12-13 11:26] LABS: Alanine Aminotransferase 22 U/L (10-49); Albumin, Serum 4.1 gm/dL (3.4-4.8); Albumin/Globulin Ratio 1.5 (1.2-2.2); Alkaline Phosphatase 89 U/L (46-116); Anion Gap 10 (7-16); Aspartate Amino Transferase 27 U/L (0-34); BUN/Creatinine Ratio 7 Ratio (12-20); Bilirubin,Total 0.4 mg/dL (0.3-1.2); Blood Urea Nitrogen < 5 mg/dL (9-23); Calcium 9.5 mg/dL (8.3-10.6); Calcium (Corrected) 9.5 mg/dL (8.5-10.1); Chloride 101 mMol/L (98-107); Creatinine (Component) 0.7 mg/dL (0.6-1.3); Estimated Creatinine Clearance 82.1 mL/min (>60); Globulin 2.7 gm/dL (2.3-3.5); Glucose 133 mg/dL (74-106); Lipase 44 U/L (12-53); Osmolality,Calculated 276 (275-295); Potassium 3.8 mMol/L (3.4-5.1); Sodium 139 mMol/L (136-145); Total Protein 6.8 gm/dL (5.7-8.2); Troponin I < 0.020 ng/mL (0.0-0.045); eGFR > 60 See Note
[2024-12-13 16:16] VITALS: BP 183/85; PULSE 70; RESP 20; TEMP 36.6; O2SAT 99
--- NOTE | 2024-12-13 16:24 | EDNOTE_ITS ---
<Statement entered by Mary Mike MD - 12/13/24 21:02> As co-signing physician, I was present and available for consult prn. I concur with the plan and care as documented by the midlevel provider. ED SOB =RME/HPI General Chief Complaint: Shortness of Breath/Dyspnea Stated Complaint: HTN, SOB since last night Time Seen by Provider: 12/13/24 10:25 Arrival date/time: 12/13/24 10:13 RME / HPI RME / HPI Narrative: 69-year-old female patient came in for evaluation regarding epigastric pain. Onset of symptoms since last night as epigastric pain, radiating to the substernal area, shortness of breath, described as dull ache, severity moderate. Patient denies any cough denies any fever denies any other complaints. Denies any vomiting also. Patient is on 24/7 oxygen. Taking Eliquis for DVT. Related Data Home Medications ?Medication ?Instructions ?Recorded ?Confirmed acetaminophen 500 mg capsule 500 mg PO Q4H PRN pain 12/01/24 baclofen 10 mg tablet 10 mg PO BID PRN muscle spas m 12/01/24 12/01/24 diltiazem HCl 120 mg capsule,24 120 mg PO DAILY 12/01/24 hr,extended release furosemide 40 mg tablet 40 mg PO QDAY 12/01/2412/01 insulin glargine 100 unit/mL (3 30 unit subcut HS 11/1912/01/24 mL) subcutaneous pen (Lantus Solostar U-100 Insulin) levothyroxine 25 mcg tablet 25 mcg PO QAM 12/01/24 metformin 1,000 mg tablet 1,000 mg PO BID 12/01/24 propranolol 20 mg tablet 20 mg PO QDAY 12/01/2412/01 semaglutide 0.25 mg or 0.5 mg (2 0.25 mg subcut .q wed day 12/01/24 12/01/24 mg/3 mL) subcutaneous pen injector (Ozempic) Previous Rx's ?Medication ?Instructions ?Recorded citalopram 20 mg tablet 20 mg PO QDAY #14 tabs 09/27 dicyclomine 10 mg capsule 10 mg PO TID #30 caps ondansetron 4 mg disintegrating 4 mg PO QDAY #10 tabs 11/27/24 tablet pantoprazole 40 mg tablet,delayed 40 mg PO QDAY #30 ta bs 11/27/24 release (Protonix) apixaban 5 mg tablet (Eliquis) 5 mg PO BID DVT 30 day s #60 tabs 12/02/24 tizanidine 2 mg tablet 2 mg PO Q8H PRN muscle spast icity 12/02/24 30 days #90 tabs magnesium oxide 400 mg PO BID #14 caps 12/13 pantoprazole 40 mg tablet,delayed 40 mg PO QDAY #30 ta bs 12/13/24 release (Protonix) Allergies Allergy/AdvReac Type Severity Reaction Status Date / Time codeine Allergy Severe Anxiety Verified 12/13/24 10:17 hydrocodone Allergy Severe Anxiety Verified 12/13/24 10:17 Review of Systems Review of Systems Narrative Review of Systems: Review of system reviewed and within normal limits except mentioned in HPI ED Exam Narrative Physical exam: VITAL SIGNS: Reviewed. GENERAL APPEARANCE: Alert and interactive, follows commands, no acute distress, HEAD AND FACE: Non-traumatic. ENT: PERRL, pink conjunctivitis, eyelid no trauma, Mucous membrane moist. NECK: Supple, nontender, no nuchal rigidity. CHEST: No tenderness, no crepitus, no paradoxical movement, no retractions. LUNGS: Clear, well ventilated, symmetric, no rales, no wheezing, no ronchi, no stridor, good breath sounds bilaterally. HEART: Regular rate, regular rhythm, no murmur, no gallops. ABDOMEN: Soft, positive bowel sounds, nondistended, no guarding, epigastric tenderness, no rebound, no masses, RECTAL: Deferred. GENITAL: Deferred. NEUROLOGICAL: Gross motor function intact sensory function intact, Appropriate for age. MUSCULOSKELETAL: low back nontender, full range of motion. EXTREMITIES: Nontender, full range of motion. SKIN: Color pink, dry, no rash, no lacerations, no abrasions, no contusions. LYMPHATICS: Deferred. Course Quality Measures none Orders Category Date Time Status EKG (ED ONLY) *Do not use* NOW Care 12/13/24 10:26 Completed EKG (ED Only) Stat Exams 12/13/24 10:26 Draft US gall bladder Stat Exams 12/13/24 16:26 Completed XR chest 1V portable Stat Exams 12/13/24 10:32 Completed B-Type Natriuretic Peptide Stat Lab 12/13/24 10:47 Completed CBC Stat Lab 12/13/24 10:47 Completed Comprehensive Metabolic Panel Stat Lab 12/13/24 10:47 Completed Lipase Stat Lab 12/13/24 10:47 Completed Magnesium Stat Lab 12/13/24 10:47 Completed Partial Thromboplastin Time Stat Lab 12/13/24 10:47 Completed Prothrombin Time with INR Stat Lab 12/13/24 10:47 Completed Troponin I Stat Lab 12/13/24 10:47 Completed Famotidine Inj [Pepcid Inj] Med 12/13/24 16:26 Discontinued 20 mg IVP X1 ONE Ketorolac Inj [Toradol Inj] Med 12/13/24 16:26 Discontinued 15 mg IVP X1 ONE Magnesium Sulfate 2 GM Ivpb [Magnesium Sulfate Ivpb] Med 12/13/24 16:11 Discontinued 2 gm in 50 ml IV X1 hydrALAZINE INJ [Apresoline Inj] Med 12/13/24 18:10 Discontinued 20 mg IVP X1 ONE mg Hyd/Al Hyd/Joel Susp [Maalox Susp] Med 12/13/24 16:27 Discontinued 30 ml PO X1 ONE Vital Signs Vital signs: Vital Signs Pulse Rate 71 12/13/24 10:22 Respiratory Rate 20 12/13/24 10:22 Blood Pressure 193/83 H 12/13/24 10:22 Pulse Oximetry (%) 97 12/13/24 10:22 Oxygen Delivery Method Nasal Cannula 12/13/24 10:22 Oxygen Flow Rate 2 12/13/24 10:22 Shortness of Breath / Dyspnea MDM Narrative MDM Narrative:: 69-year-old female patient came in for evaluation regarding epigastric pain. Onset of symptoms since last night as epigastric pain, radiating to the substernal area, shortness of breath, described as dull ache, severity moderate. Patient denies any cough denies any fever denies any other complaints. Denies any vomiting also. Patient is on 24/7 oxygen. Taking Eliquis for DVT. Patient's workup all came back unremarkable including ultrasound of the gallbladder which showed no acute pathology except for magnesium 1.0. Patient received magnesium IV in the emergency room. I personally reviewed and interpreted the x-ray of this patient. There is no acute abnormalities found, no infiltrates no pneumothorax no hemothorax normal chest x-ray. Review of other structures was without significant abnormal findings also. I additionally reviewed the radiologist report and agree with the interpretation. Patient EKG showed normal sinus rhythm, ventricular rate of 71 bpm, no ST segment elevation or depressions. Patient blood pressure was also noted to be elevated, patient received IV hydralazine with significant improvement of symptoms. Blood pressure was noted to be 153/73 prior to discharge. Patient was advised to stop taking Ozempic until seen by PCP. Which could be the reason for her epigastric pain Patient data External records reviewed:: None Clinical information provided by:: patient Social determinants that could affect healthcare access:: none Patient has the following chronic illnesses:: Anxiety, hypertension How is presenting disease/condition affected by chronic disease/condition?: ex acerbated by Evaluation data The following diagnostics were reviewed and interpreted by me:: other (specify) Lab and/or radiology exams considered but not ordered:: None Interpretation Summary: See results MDM Medications / Prescriptions Medications or Prescriptions considered but not ordered:: None Medication administrations:: Medication Administration History Discontinued Medications Al Hydrox/Mg Hydrox/Simethicone (Mg Hyd/Al Hyd/Joel (Maalox Reg) Susp 30 Ml Udc) 30 ml PO X1 ONE Stop: 12/13/24 16:28 Last Admin: 12/13/24 17:57 Dose: 30 ml Documented By: TM Famotidine (Famotidine Inj 10 Mg/Ml Vial 2 Ml) 20 mg IVP X1 ONE Stop: 12/13/24 16:27 Last Admin: 12/13/24 17:56 Dose: 20 mg Documented By: TM Hydralazine HCl (Hydralazine Inj 20 Mg/Ml Vial) 20 mg IVP X1 ONE Stop: 12/13/24 18:11 Last Admin: 12/13/24 19:21 Dose: 20 mg Documented By: AC Magnesium Sulfate (Magnesium Sulfate Ivpb) 2 gm in 50 mls @ 25 mls/hr IV X1 ONE Stop: 12/13/24 18:10 Last Infusion: 12/13/24 19:55 Dose: Infused Documented By: Admin: 12/13/24 17:57 Dose: 25 mls/hr Documented By: TM Ketorolac Tromethamine (Ketorolac Inj 30 Mg/Ml Vial) 15 mg IVP X1 ONE Stop: 12/13/24 16:27 Last Admin: 12/13/24 17:57 Dose: 15 mg Documented By: TM Toradol, magnesium sulfate, hydralazine famotidine and Maalox Consultations Consultation(s) initiated? (list below): No Diagnosis Shortness of Breath Differential Diagnosis: other (Epigastric pain, gastritis, adverse effect of medications, anxiety) Most likely diagnosis given after review of the tests above:: Epigastric pain, gastritis, Admission Indicated Admission indicated?: not indicated Admission Request Was there a request for admission?: No Disposition Plan Disposition Plan: Discharge Discharge Attestation Discharge Attestation: The patient and all family members were given an opportunity to ask questions and understood the discharge instructions. Discharge instructions specifically effects, indications for sooner follow up or return to the emergency department, and the expected course of current diagnosis. Patient condition: Stable Discharge Plan Plan Patient Disposition: HOME (Self Care) Discharge Disposition comment: Stable Prescriptions/Referrals Prescriptions/Med Rec: New magnesium oxide 400 mg magnesium capsule 400 mg PO BID Qty: 14 0RF pantoprazole [Protonix] 40 mg tablet,delayed release (DR/EC) 40 mg PO QDAY Qty: 30 0RF No Action citalopram 20 mg tablet 20 mg PO QDAY Qty: 14 0RF levothyroxine 25 mcg tablet 25 mcg PO QAM insulin glargine [Lantus Solostar U-100 Insulin] 100 unit/mL (3 mL) insulin pen 30 unit SUBCUT HS furosemide 40 mg tablet 40 mg PO QDAY Ozempic 0.25 mg or 0.5 mg (2 mg/3 mL) pen injector 0.25 mg SUBCUT .q wednesday propranolol 20 mg tablet 20 mg PO QDAY metformin 1,000 mg tablet 1,000 mg PO BID diltiazem HCl 120 mg capsule,extended release 24 hr 120 mg PO DAILY baclofen 10 mg tablet 10 mg PO BID PRN (Reason: muscle spasm) acetaminophen 500 mg capsule 500 mg PO Q4H PRN (Reason: pain) Eliquis 5 mg tablet 5 mg PO BID 30 Days Qty: 60 3RF Rx Instructions: Take one tablet two times a day tizanidine 2 mg tablet 2 mg PO Q8H PRN (Reason: muscle spasticity) 30 Days Qty: 90 0RF Rx Instructions: Take one tablet every 8 hours as needed for muscle spasm pantoprazole [Protonix] 40 mg tablet,delayed release (DR/EC) 40 mg PO QDAY Qty: 30 0RF ondansetron 4 mg tablet,disintegrating 4 mg PO QDAY Qty: 10 0RF dicyclomine 10 mg capsule 10 mg PO TID Qty: 30 0RF Referrals: Kirit Henderson MD [Primary Care Provider] - In 1 week Problem List Clinical Impression: Acute epigastric pain, Gastritis Patient/Caregiver Discharge Instructions Discharge Activity: activity as tolerated Education Materials: ED Gastritis (Adult) Additional Instructions: Thank you for the opportunity for serving you today. You are stable for discharged . You are advised to: Follow-up with your PCP in 1 to 2 days Return to ED for worsening of symptoms Increase oral fluids Take medication as prescribed Stop taking your Ozempic until you talk to your doctor which could be the reason why you are having epigastric pain Print Language: Italian Stand Alone Forms: Demi Award Info., Patient Portal Info Letter PA/JAMES Supervising Physician DALTON/JAMES Supervising Physician: MD Cee
--- NOTE | 2024-12-13 16:26 | XR_ITS ---
Examination: Abdomen sonogram, Limited Date and time of exam: December 13, 2024 1640 hours INDICATIONS: Epigastric pain beginning today Technique: Real-time reyes scale transabdominal sonographic images of the upper abdomen obtained. Findings: Normal gallbladder Normal common bile duct 0.3 cm Pancreatic head 2.5 cm Liver 13.3 cm fatty infiltration Normal hepatopedal portal venous flow Patent IVC IMPRESSION: Normal gallbladder Fatty infiltration throughout the liver
[2024-12-13 17:21] VITALS: BP 181/80; PULSE 70; RESP 18; TEMP 36.9; O2SAT 98
[2024-12-13] MEDS: FAMOTIDINE INJ 10 MG/ML VIAL 2 ML 20 MG IVP (17:56)
[2024-12-13] MEDS: MG HYD/AL HYD/SIME (Maalox Reg) SUSP 30 ML UDC PO (17:57)
[2024-12-13] MEDS: Magnesium Sulfate 2 GM Ivpb 2 GM/50 ML BAG IV (17:57)
[2024-12-13] MEDS: KETOROLAC INJ 30 MG/ML VIAL 15 MG IVP (17:57)
[2024-12-13 19:07] VITALS: BP 217/89; PULSE 65; RESP 16; O2SAT 97
[2024-12-13 19:21] VITALS: BP 217/89; PULSE 61
[2024-12-13] MEDS: hydrALAZINE INJ 20 MG/ML VIAL IVP (19:21)
[2024-12-13 20:35] VITALS: BP 153/58; PULSE 75; RESP 18; O2SAT 96
== END 2024-12-13 20:35 | disposition home or self-care (01) ==
PROVIDERS: Nurse Practitioner Primary Care; Emergency Provider Emergency Medicine; PCP Family Medicine
DX: K29.70 Gastritis, unspecified, without bleeding (principal); R07.9 Chest pain, unspecified; R06.02 Shortness of breath; R10.13 Epigastric pain; I10 Essential (primary) hypertension
CPT/HCPCS: 36415; 71045; 76705; 80053; 83690; 83735; 83880; 84484; 85025; 85610; 85730; 93005; 96365; 96366; 96375; 99284; J0360; J1885; J3475; J3490; A9270

== ENCOUNTER 2024-12-22 06:41 | Emergency (ER) | payer MEDICARE, MEDICAID, SELFPAY ==
[2024-12-22] VITALS (8 sets, daily range): BP systolic 153–208; BP diastolic 68–91; PULSE 81–100; RESP 16–18; TEMP 36.9–37; O2SAT 95; BMI 39.0
--- NOTE | 2024-12-22 07:15 | XR_ITS ---
Examination: PA lateral chest 2 views Technique: Upright PA lateral chest 2 views Date and time: December 22, 2024 0736 hrs. Indications: Shortness of breath today. Findings: Minimal prominence left ventricle. No lobar pneumonia or pulmonary edema. Moderate osteopenia Impression: No lobar pneumonia or pulmonary edema
--- NOTE | 2024-12-22 07:15 | EKG_ITS ---
[facility] Test Date: 2024-12-22 Pat Name: PRABHU LANDIN Department: Room: - Gender: Female [employer] Engineer: : 1955 Requested By: Yanna Nam Order Number: [id number] Reading MD: Yanna Nam Measurements Intervals [place] Rate: 85 P: 15 [place]: 143 QRS: 7 QRSD: 94 T: 52 QT: 360 QTc: 429 Interpretive Statements SINUS RHYTHM Compared to ECG 12/13/2024 10:40:52 No significant changes /store/S0/[id number]
--- NOTE | 2024-12-22 07:16 | PD.EDRME ---
Rapid Medical Screening Exam RME Arrival date/time: 12/22/24 06:41 This is a 69-year-old female that comes in with complaints of shortness of breath, abdominal pain, and nausea. Patient states symptoms started last night. Patient states she was taking her blood pressure today and it is very elevated. Patient has a history of diabetes, high blood pressure, hypothyroidism, DVT. I have greeted and performed a focused initial assessment of this patient. Initial appropriate labs ordered at this time. A comprehensive ED assessment and evaluation of the patient and analysis of all test and completion of medical decision making process will be conducted by additional ED provider. Chief Complaint: Abdominal Pain Time Seen by Provider: 12/22/24 06:43 Vital signs: Vital Signs Temperature 98.6 F 12/22/24 07:11 Pulse Rate 84 12/22/24 07:11 Respiratory Rate 16 12/22/24 07:11 Blood Pressure 153/88 H 12/22/24 07:11 Pulse Oximetry (%) 95 12/22/24 07:11 Oxygen Delivery Method Room Air 12/22/24 07:11
[2024-12-22 08:07] LABS: Basophils # (Auto) 0.0 Thou/mm3 (0.0-0.2); Basophils % (Auto) 1 % (0-2.5); Eosinophils # (Auto) 0.2 Thou/mm3 (0.0-0.5); Eosinophils % (Auto) 3 % (0-10); Hematocrit 42.8 % (36.0-46.0); Hemoglobin 13.9 g/dL (12.0-16.0); Immature Granulocytes Auto 0.01 Thou/mm3 (0.00-0.00); Lymphocytes # (Auto) 2.9 Thou/mm3 (1.0-4.8); Lymphocytes % (Auto) 46 % (10-50); Mean Corpuscular HGB Conc 32.5 g/dl (31.0-37.0); Mean Corpuscular Hemoglobin 31.6 pg (25.0-35.0); Mean Corpuscular Volume 97 fL (80-100); Monocytes # (Auto) 0.5 Thou/mm3 (0.0-0.8); Monocytes % (Auto) 9 % (0-12); Neutrophils # (Auto) 2.6 Thou/mm3 (1.8-7.7); Neutrophils % (Auto) 42 % (37-80); Nucleated Red Blood Cell # 0.00 Thou/mm3 (0.00-0.00); Nucleated Red Blood Cell % 0 /100 WBC (0); Platelet Count 248 Thou/mm3 (140-440); RDW Standard Deviation 47.0 fL (36.4-46.3); Red Blood Count 4.40 Miln/mm3 (4.00-5.20); White Blood Count 6.3 Thou/mm3 (3.6-11.0)
--- NOTE | 2024-12-22 08:07 | PD.EDABDPN ---
ED Abdominal Pain RME/HPI General Chief Complaint: Abdominal Pain Stated complaint: HIGH BLOOD PRESSURE, N/V Time seen by provider: 12/22/24 06:43 Arrival date/time: 12/22/24 06:41 Limitations: no limitations RME / HPI RME / HPI narrative: 12/22/24 06:41 This is a 69-year-old female that comes in with complaints of shortness of breath, abdominal pain, and nausea. Patient states symptoms started last night. Patient states she was taking her blood pressure today and it is very elevated. Patient has a history of diabetes, high blood pressure, hypothyroidism, DVT. I have greeted and performed a focused initial assessment of this patient. Initial appropriate labs ordered at this time. A comprehensive ED assessment and evaluation of the patient and analysis of all test and completion of medical decision making process will be conducted by additional ED provider. DR. CISSE MAIN ED EVALUATION: 69 year old female presents to the Emergency Department with complaint of high blood pressure and upper abdominal pain. She has been seen here for hypertension in the past. No other complaints reported. PMHx: Hypertension on propranolol 20 mg and cardizem 120 mg, diabetes, arthritis, hypothyroidism, DVT on Eliquis for a year, and gastritis. Family history is significant for hypertension. No significant family history for [place], stroke, or diabetes. Social Hx: No tobacco, alcohol, or substance use. Related Data Home Medications ?Medication ?Instructions ?Recorded ?Confirmed acetaminophen 500 mg capsule 500 mg PO Q4H PRN pain 12/01/24 12/01/24 baclofen 10 mg tablet 10 mg PO BID PRN muscle spasm 12/01/24 12/01/24 diltiazem HCl 120 mg capsule,24 120 mg PO DAILY 12/01/24 12/01/24 hr,extended release furosemide 40 mg tablet 40 mg PO QDAY 12/01/24 12/01/24 insulin glargine 100 unit/mL (3 30 unit subcut HS 12/01/24 12/01/24 mL) subcutaneous pen (Lantus Solostar U-100 Insulin) levothyroxine 25 mcg tablet 25 mcg PO QAM 12/01/24 12/01/24 metformin 1,000 mg tablet 1,000 mg PO BID 12/01/24 12/01/24 propranolol 20 mg tablet 20 mg PO QDAY 12/01/24 12/01/24 semaglutide 0.25 mg or 0.5 mg (2 0.25 mg subcut .q wednesday12/01/24 12/01/24 mg/3 mL) subcutaneous pen injector (Ozempic) Previous Rx's ?Medication ?Instructions ?Recorded citalopram 20 mg tablet 20 mg PO QDAY #14 tabs 09/27/18 dicyclomine 10 mg capsule 10 mg PO TID #30 caps 11/27/24 ondansetron 4 mg disintegrating 4 mg PO QDAY #10 tabs 11/27/24 tablet pantoprazole 40 mg tablet,delayed 40 mg PO QDAY #30 tabs 11/27/24 release (Protonix) apixaban 5 mg tablet (Eliquis) 5 mg PO BID DVT 30 days #60 tabs 12/02/24 tizanidine 2 mg tablet 2 mg PO Q8H PRN muscle spasticity 12/02/24 30 days #90 tabs magnesium oxide 400 mg PO BID #14 caps 12/13/24 pantoprazole 40 mg tablet,delayed 40 mg PO QDAY #30 tabs 12/13/24 release (Protonix) diltiazem HCl 180 mg 180 mg PO QAM hypertension #30 caps 12/22/24 capsule,extended release 24 hr sulfamethoxazole 800 1 tab PO BID 7 days #14 tabs 12/22/24 mg-trimethoprim 160 mg tablet (Bactrim DS) Allergies Allergy/AdvReac Type Severity Reaction Status Date / Time codeine Allergy Severe Anxiety Verified 12/13/24 10:17 hydrocodone Allergy Severe Anxiety Verified 12/13/24 10:17 Review of Systems Review of Systems Systems Reviewed: All systems reviewed, normal except as documented Past Medical History Past Medical History CARDIAC: Positive Cardiac Disorders, Hypercholesterolemia, Edema, Deep Vein Thrombosis and Hypertension RESPIRATORY: Positive Sleep Apnea GASTROINTESTINAL: Positive Gastrointestinal Disorders, Gastroesophageal Reflux Disease and Obesity MUSCULOSKELETAL: Positive Musculoskeletal Disorders, Arthritis and Fibromyalgia ENDOCRINE: Positive Endocrine Disorders, Diabetes Mellitus Type 2 and Hypothyroidism PSYCHO/SOCIAL: Positive Depression and Anxiety OTHER HISTORY: Positive Hospitalization and Falls Family History FAMILY HISTORY: Positive Family Surgery Surgical History SURGICAL: Positive Abdominal Surgery and Section Social History SMOKING STATUS: Never smoker SECOND HAND EXPOSURE: No SUBSTANCE USE: does not use ALCOHOL: Never ED Exam General Limitations: Present no limitations General appearance: Present alert, in no apparent distress, anxious and other (tearful) Head Head exam: Present atraumatic, normocephalic and normal inspection Eye Eye exam: Present normal appearance, PERRL and EOMI ENT ENT exam: Present normal exam, normal oropharynx and mucous membranes moist Neck Neck exam: Present normal inspection, full ROM and trachea midline Chest Chest inspection: Present normal inspection and symmetric chest wall rise Respiratory Respiratory exam: Present normal lung sounds bilaterally Cardiovascular Cardiovascular exam: Present regular rate, normal rhythm and normal heart sounds Abdominal Exam Abdominal exam: Present soft and normal bowel sounds Extremities Exam Extremities exam: Present normal inspection and full ROM Back Exam Back exam: Present normal inspection and full ROM Neurological Exam Neurological exam: Present alert, oriented X3 and CN II-XII intact Psychiatric Psychiatric exam: Present normal affect and normal mood Skin Skin exam: Present warm, dry, intact and normal color Course Quality Measures none Orders Category Date Time Status EKG (ED ONLY) *Do not use* NOW Care 12/22/24 07:15 Completed Insert [Insert IV] NOW Care 12/22/24 08:24 Active EKG (ED Only) Stat Exams 12/22/24 07:15 Draft XR chest 2V Stat Exams 12/22/24 07:15 Completed BNP [B-Type Natriuretic Peptide] Stat Lab 12/22/24 07:37 Completed CBC Stat Lab 12/22/24 07:37 Completed Comprehensive Metabolic Panel Stat Lab 12/22/24 07:37 Completed Lipase Stat Lab 12/22/24 07:37 Completed Troponin I Stat Lab 12/22/24 07:37 Completed Urinalysis, C/S if Indicated Stat Lab 12/22/24 07:54 Completed Urine Culture Stat Lab 12/22/24 07:54 Received LORazepam [Ativan Inj] Med 12/22/24 10:02 Discontinued 0.5 mg IVP X1 ONE Sodium Chloride 0.9% 1000 ml [Ns] 1,000 ml Med 12/22/24 08:30 Active IV 100 mls/hr cloNIDine HCL [Catapres] Med 12/22/24 08:24 Discontinued 0.1 mg PO X1 ONE cloNIDine HCL [Catapres] Med 12/22/24 10:02 Discontinued 0.1 mg PO X1 ONE hydrALAZINE INJ [Apresoline Inj] Med 12/22/24 08:24 Discontinued 5 mg IVP X1 ONE hydrALAZINE INJ [Apresoline Inj] Med 12/22/24 10:02 Discontinued 5 mg IVP X1 ONE Vital Signs Vital signs: Vital Signs Temperature 98.6 F 12/22/24 07:11 Pulse Rate 84 12/22/24 07:11 Respiratory Rate 16 12/22/24 07:11 Blood Pressure 153/88 H 12/22/24 07:11 Pulse Oximetry (%) 95 12/22/24 07:11 Oxygen Delivery Method Room Air 12/22/24 07:11 Abdominal Pain MDM MDM Narrative MDM Narrative:: I, Missy Munson am scribing for and in the presence of Dr. Cisse. Patient data External records reviewed:: [facility] previous records Clinical information provided by:: patient Social determinants that could affect healthcare access:: none Patient has the following chronic illnesses:: Hypertension on propranolol 20 mg and cardizem 120 mg, diabetes, arthritis, hypothyroidism, DVT on Eliquis for a year, and gastritis. How is presenting disease/condition affected by chronic disease/condition?: exacerbated by Evaluation data The following diagnostics were reviewed and interpreted by me:: lab results, radiology exam(s) and EKG tracing(s) (My interpretation: EKG performed at 0720 hours, sinus rhythm, rate 85, no acute changes, no STEMI) Lab and/or radiology exams considered but not ordered:: none Interpretation Summary: Procedure(s): XR chest 2V Accession Number(s): [id number] cc: Kirit Henderson MD; Thiago Hoskins MD; Yanna Nam NP~ Examination: PA lateral chest 2 views Technique: Upright PA lateral chest 2 views Date and time: December 22, 2024 0736 hrs. Indications: Shortness of breath today. Findings: Minimal prominence left ventricle. No lobar pneumonia or pulmonary edema. Moderate osteopenia Impression: No lobar pneumonia or pulmonary edema Dictated By: Thiago Hoskins MD Medications / Prescriptions Medications or Prescriptions considered but not ordered:: none Medication administrations:: Medication Administration History Sodium Chloride (Ns) 1,000 mls @ 100 mls/hr IV .Q10H ANA LILIA Stop: 01/21/25 08:29 Last Admin: 12/22/24 08:44 Dose: 100 mls/hr Documented By: VLADIMIR Discontinued Medications Clonidine (Clonidine Hcl 0.1 Mg Tablet) 0.1 mg PO X1 ONE Stop: 12/22/24 08:25 Last Admin: 12/22/24 08:45 Dose: 0.1 mg Documented By: VLADIMIR Clonidine (Clonidine Hcl 0.1 Mg Tablet) 0.1 mg PO X1 ONE Stop: 12/22/24 10:03 Last Admin: 12/22/24 11:12 Dose: 0.1 mg Documented By: VLADIMIR Hydralazine HCl (Hydralazine Inj 20 Mg/Ml Vial) 5 mg IVP X1 ONE Stop: 12/22/24 08:25 Last Admin: 12/22/24 08:44 Dose: 5 mg Documented By: VLADIMIR Hydralazine HCl (Hydralazine Inj 20 Mg/Ml Vial) 5 mg IVP X1 ONE Stop: 12/22/24 10:03 Last Admin: 12/22/24 11:13 Dose: 5 mg Documented By: VLADIMIR Lorazepam (Lorazepam 2 Mg/Ml Vial) 0.5 mg IVP X1 ONE Stop: 12/22/24 10:03 Last Admin: 12/22/24 11:13 Dose: 0.5 mg Documented By: VLADIMIR see above if any Consultations Consultation(s) initiated? (list below): No Diagnosis Differential diagnosis abdominal pain: abdominal pain and other (hypertensive emergency, hypertensive urgency) Most likely diagnosis given after review of the tests above:: UTI Hypertension, uncontrolled Admission Indicated Admission indicated?: not indicated Admission Request Was there a request for admission?: No Disposition Plan Disposition Plan: Discharge Discharge Attestation Discharge Attestation: The patient and all family members were given an opportunity to ask questions and understood the discharge instructions. Discharge instructions specifically effects, indications for sooner follow up or return to the emergency department, and the expected course of current diagnosis. Patient condition: Stable Discharge Plan Plan Patient Disposition: HOME (Self Care) Patient condition on transfer: Stable Prescriptions/Referrals Prescriptions/Med Rec: New diltiazem HCl 180 mg capsule,extended release 24hr 180 mg PO QAM MDD 1 Qty: 30 0RF sulfamethoxazole-trimethoprim [Bactrim DS] 800-160 mg tablet 1 tab PO BID 7 Days Qty: 14 0RF No Action citalopram 20 mg tablet 20 mg PO QDAY Qty: 14 0RF levothyroxine 25 mcg tablet 25 mcg PO QAM insulin glargine [Lantus Solostar U-100 Insulin] 100 unit/mL (3 mL) insulin pen 30 unit SUBCUT HS furosemide 40 mg tablet 40 mg PO QDAY Ozempic 0.25 mg or 0.5 mg (2 mg/3 mL) pen injector 0.25 mg SUBCUT .q wednesday propranolol 20 mg tablet 20 mg PO QDAY metformin 1,000 mg tablet 1,000 mg PO BID diltiazem HCl 120 mg capsule,extended release 24 hr 120 mg PO DAILY baclofen 10 mg tablet 10 mg PO BID PRN (Reason: muscle spasm) acetaminophen 500 mg capsule 500 mg PO Q4H PRN (Reason: pain) Eliquis 5 mg tablet 5 mg PO BID 30 Days Qty: 60 3RF Rx Instructions: Take one tablet two times a day tizanidine 2 mg tablet 2 mg PO Q8H PRN (Reason: muscle spasticity) 30 Days Qty: 90 0RF Rx Instructions: Take one tablet every 8 hours as needed for muscle spasm magnesium oxide 400 mg magnesium capsule 400 mg PO BID Qty: 14 0RF pantoprazole [Protonix] 40 mg tablet,delayed release (DR/EC) 40 mg PO QDAY Qty: 30 0RF pantoprazole [Protonix] 40 mg tablet,delayed release (DR/EC) 40 mg PO QDAY Qty: 30 0RF ondansetron 4 mg tablet,disintegrating 4 mg PO QDAY Qty: 10 0RF dicyclomine 10 mg capsule 10 mg PO TID Qty: 30 0RF Referrals: Kirit Henderson MD [Primary Care Provider] - In 1 week Problem List Clinical Impression: UTI (urinary tract infection), Hypertension, uncontrolled Patient/Caregiver Discharge Instructions Education Materials: Urinary Tract Infections in Women, ED High Blood Pressure ... Additional Instructions: Please follow-up with your primary care physician within 2-3 days. Return to the Emergency Department as needed. Lambert un seguimiento con reich m?dico de cabecera dentro de 2-3 alcantar. Regrese al Departamento de Emergencias seg?n sea necesario. Discontinue your cardizem and take the new prescribed one with higher dosage. Please get a lead radiologic technologist consult with your PCP. Print Language: Czech
[2024-12-22 08:09] LABS: B-Type Natriuretic Peptide < 20 pg/mL (0-100)
[2024-12-22 08:11] LABS: Alanine Aminotransferase 29 U/L (10-49); Albumin, Serum 4.2 gm/dL (3.4-4.8); Albumin/Globulin Ratio 1.4 (1.2-2.2); Alkaline Phosphatase 85 U/L (46-116); Anion Gap 8 (7-16); Aspartate Amino Transferase 33 U/L (0-34); BUN/Creatinine Ratio 7 Ratio (12-20); Bilirubin,Total 0.5 mg/dL (0.3-1.2); Blood Urea Nitrogen 5 mg/dL (9-23); Calcium 10.0 mg/dL (8.3-10.6); Calcium (Corrected) 10.0 mg/dL (8.5-10.1); Carbon Dioxide 30.7 mMol/L (20.0-31.0); Chloride 101 mMol/L (98-107); Creatinine (Component) 0.7 mg/dL (0.6-1.3); Estimated Creatinine Clearance 78.3 mL/min (>60); Globulin 3.0 gm/dL (2.3-3.5); Glucose 146 mg/dL (74-106); Lipase 42 U/L (12-53); Osmolality,Calculated 279 (275-295); Potassium 4.1 mMol/L (3.4-5.1); Sodium 140 mMol/L (136-145); Total Protein 7.2 gm/dL (5.7-8.2); Troponin I < 0.020 ng/mL (0.0-0.045); eGFR > 60 See Note
[2024-12-22 08:20] LABS: Collection Type, Urine Voided; RBC,Urine 0 /hpf (0-3)
[2024-12-22] MEDS: SODIUM CHLORIDE 0.9% 1000 ML 1,000 ML 100 ML IV (08:44)
[2024-12-22] MEDS: hydrALAZINE INJ 20 MG/ML VIAL 5 MG IVP ×2 (08:44→11:13)
[2024-12-22 09:05] LABS: Bacteria,Urine Rare; Bilirubin,Urine Negative (Negative); Blood,Urine Negative (Negative); Clarity,Urine Turbid (Clear/Hazy); Color,Urine Yellow (Lt Yel-Yel); Glucose, Urine Negative (Negative); Ketones,Urine Negative (Negative); Leukocyte Esterase,Urine Positive (Negative); Nitrite,Urine Negative (Negative); PH,Urine 6.0 (5.0-7.0); Protein,Urine Trace (Neg - Trace); Specific Gravity,Urine 1.020 (1.001-1.035); Squamous Epithelial Cell,Urine 9 /hpf (0-5); Urobilinogen,Urine Negative mg/dL (0.0-1.0); WBC,Urine 33 /hpf (0-5)
[2024-12-22 09:06] LABS: Culture Indicated,Urine Yes
[2024-12-22] MEDS: LORazepam 2 MG/ML VIAL 0.5 MG IVP (11:13)
== END 2024-12-22 18:11 | disposition home or self-care (01) ==
PROVIDERS: Nurse Practitioner Family; Emergency Provider Family Medicine; PCP Family Medicine
DX: N39.0 Urinary tract infection, site not specified (principal); I10 Essential (primary) hypertension; E11.9 Type 2 diabetes mellitus without complications; E03.9 Hypothyroidism, unspecified; Z86.718 Personal history of other venous thrombosis and embolism
CPT/HCPCS: 36415; 71046; 80053; 81001; 83690; 83880; 84484; 85025; 87086; 93005; 96374; 96375; 96376; 99284; J0360; J2060; J7030; A9270

== ENCOUNTER 2024-12-30 09:46 | Emergency (ER) | payer MEDICARE, MEDICAID, SELFPAY ==
[2024-12-30 10:04] VITALS: BP 184/82; BP 194/78; PULSE 66; RESP 18; TEMP 36.8; O2SAT 96; BMI 48.8
--- NOTE | 2024-12-30 10:20 | EKG_ITS ---
[facility] Test Date: 2024-12-30 Pat Name: PRABHU LANDIN Department: Room: - Gender: Female Commercial Artist: : [id number] Requested By: Ramirez Krishnan (RONALD) Order Number: [id number] Reading MD: Ramirez Krishnan (BAKELITE MOLDER) Measurements Intervals [place] Rate: 63 P: 25 GA: 206 QRS: 3 QRSD: 104 T: 14 QT: 383 QTc: 393 Interpretive Statements SINUS RHYTHM Compared to ECG 12/22/2024 07:20:35 No significant changes /store/S0/[id number].pdf
--- NOTE | 2024-12-30 10:20 | XR_ITS ---
Examination: CT brain head without contrast. 2-D sagittal coronal reconstructions Date and time of exam:December 30, 2024, 1028 hrs. Indications: Hypertension with headache today CTDI: vol (mGy): 54 DLP: (mGycm):1095 Technique: Multiple CT axial sections of the brain have been obtained, 5 mm slice thickness. Contrast has not been administered. 2-D sagittal, coronal reconstructions have been obtained Low dose protocols were performed. One or more of the following dose reduction techniques were used; automated exposure control, adjustment of the mA and/or KV according to patient size, use of iterative reconstruction technique. Findings: No significant ventricular enlargement. Intra-axial or extra-axial hemorrhage density is not seen. No mass effect or midline shift Basal cisterns are not remarkable. Fourth ventricle is midline. Cranial vault intact. Small cerebral calcifications Impression: Negative for acute hemorrhage, mass effect or midline shift
--- NOTE | 2024-12-30 10:20 | XR_ITS ---
Examination: PA lateral chest 2 views Technique: Upright PA lateral chest 2 views Date and time: December 30, 2024, 1115 hrs. Indications: High blood pressure shortness of breath since yesterday Findings: Mild enlargement left ventricle. Subsegmental atelectasis left base. No pulmonary edema or pneumonia. Moderate osteopenia. Impression: No pneumonia or pulmonary edema.
--- NOTE | 2024-12-30 10:21 | PD.EDRME ---
Rapid Medical Screening Exam RME Arrival date/time: 12/30/24 09:46 69-year-old female presents to the emergency department today for complaints of headache and elevated blood pressure Chief Complaint: General Adult/Misc Complain Vital signs: Vital Signs Temperature 98.2 F 12/30/24 10:04 Pulse Rate 66 12/30/24 10:04 Respiratory Rate 18 12/30/24 10:04 Blood Pressure 194/78 H 12/30/24 10:04 Pulse Oximetry (%) 96 12/30/24 10:04 Oxygen Delivery Method Room Air 12/30/24 10:04
[2024-12-30 11:29] LABS: Basophils # (Auto) 0.1 Thou/mm3 (0.0-0.2); Basophils % (Auto) 1 % (0-2.5); Eosinophils # (Auto) 0.2 Thou/mm3 (0.0-0.5); Eosinophils % (Auto) 2 % (0-10); Hematocrit 39.7 % (36.0-46.0); Hemoglobin 13.1 g/dL (12.0-16.0); Immature Granulocytes Auto 0.03 Thou/mm3 (0.00-0.00); Lymphocytes # (Auto) 3.3 Thou/mm3 (1.0-4.8); Lymphocytes % (Auto) 38 % (10-50); Mean Corpuscular HGB Conc 33.0 g/dl (31.0-37.0); Mean Corpuscular Hemoglobin 31.9 pg (25.0-35.0); Mean Corpuscular Volume 97 fL (80-100); Monocytes # (Auto) 0.6 Thou/mm3 (0.0-0.8); Monocytes % (Auto) 6 % (0-12); Neutrophils # (Auto) 4.5 Thou/mm3 (1.8-7.7); Neutrophils % (Auto) 53 % (37-80); Nucleated Red Blood Cell # 0.00 Thou/mm3 (0.00-0.00); Nucleated Red Blood Cell % 0 /100 WBC (0); Platelet Count 264 Thou/mm3 (140-440); RDW Standard Deviation 47.2 fL (36.4-46.3); Red Blood Count 4.11 Miln/mm3 (4.00-5.20); White Blood Count 8.6 Thou/mm3 (3.6-11.0)
[2024-12-30 11:30] LABS: Alanine Aminotransferase 18 U/L (10-49); Albumin, Serum 4.2 gm/dL (3.4-4.8); Albumin/Globulin Ratio 1.4 (1.2-2.2); Alkaline Phosphatase 77 U/L (46-116); Anion Gap 10 (7-16); Aspartate Amino Transferase 26 U/L (0-34); BUN/Creatinine Ratio 15 Ratio (12-20); Bilirubin,Total 0.4 mg/dL (0.3-1.2); Blood Urea Nitrogen 12 mg/dL (9-23); Calcium 9.3 mg/dL (8.3-10.6); Calcium (Corrected) 9.3 mg/dL (8.5-10.1); Carbon Dioxide 30.2 mMol/L (20.0-31.0); Chloride 102 mMol/L (98-107); Creatinine (Component) 0.8 mg/dL (0.6-1.3); Estimated Creatinine Clearance 78.3 mL/min (>60); Globulin 2.9 gm/dL (2.3-3.5); Glucose 133 mg/dL (74-106); Osmolality,Calculated 284 (275-295); Potassium 3.7 mMol/L (3.4-5.1); Sodium 142 mMol/L (136-145); Total Protein 7.1 gm/dL (5.7-8.2); Troponin I < 0.020 ng/mL (0.0-0.045); eGFR > 60 See Note
--- NOTE | 2024-12-30 11:48 | PD.EDADULT ---
ED General RME/HPI General Chief complaint: General Adult/Misc Complain Stated complaint: HIGH BLOOD PRESSURE X YESTERDAY, TOOK MEDS Time Seen by Provider: 12/30/24 11:42 Arrival date/time: 12/30/24 09:46 RME / HPI RME / HPI narrative: 69-year-old female patient came in for evaluation regarding elevated blood pressure. Patient's been having elevated blood pressure since yesterday, associated with headache, described as dull ache, severity moderate. Patient took her diltiazem and propranolol this morning still having elevated blood pressure. Denies any chest pain denies any neck pain denies any other complaints no medications taken prior to arrival. Related Data Home Medications ?Medication ?Instructions ?Recorded ?Confirmed acetaminophen 500 mg capsule 500 mg PO Q4H PRN pain 12/01/24 12/01/24 baclofen 10 mg tablet 10 mg PO BID PRN muscle spasm 12/01/24 12/01/24 diltiazem HCl 120 mg capsule,24 120 mg PO DAILY 12/01/24 12/01/24 hr,extended release furosemide 40 mg tablet 40 mg PO QDAY 12/01/24 12/01/24 insulin glargine 100 unit/mL (3 30 unit subcut HS 12/01/24 12/01/24 mL) subcutaneous pen (Lantus Solostar U-100 Insulin) levothyroxine 25 mcg tablet 25 mcg PO QAM 12/01/24 12/01/24 metformin 1,000 mg tablet 1,000 mg PO BID 12/01/24 12/01/24 propranolol 20 mg tablet 20 mg PO QDAY 12/01/24 12/01/24 semaglutide 0.25 mg or 0.5 mg (2 0.25 mg subcut .q wednesday12/01/24 12/01/24 mg/3 mL) subcutaneous pen injector (Ozempic) Previous Rx's ?Medication ?Instructions ?Recorded citalopram 20 mg tablet 20 mg PO QDAY #14 tabs 09/27/18 dicyclomine 10 mg capsule 10 mg PO TID #30 caps 11/27/24 ondansetron 4 mg disintegrating 4 mg PO QDAY #10 tabs 11/27/24 tablet pantoprazole 40 mg tablet,delayed 40 mg PO QDAY #30 tabs 11/27/24 release (Protonix) apixaban 5 mg tablet (Eliquis) 5 mg PO BID DVT 30 days #60 tabs 12/02/24 tizanidine 2 mg tablet 2 mg PO Q8H PRN muscle spasticity 12/02/24 30 days #90 tabs magnesium oxide 400 mg PO BID #14 caps 12/13/24 pantoprazole 40 mg tablet,delayed 40 mg PO QDAY #30 tabs 12/13/24 release (Protonix) diltiazem HCl 180 mg 180 mg PO QAM hypertension #30 caps 12/22/24 capsule,extended release 24 hr Allergies Allergy/AdvReac Type Severity Reaction Status Date / Time codeine Allergy Severe Anxiety Verified 12/30/24 09:51 hydrocodone Allergy Severe Anxiety Verified 12/30/24 09:51 Review of Systems Review of Systems Narrative Review of Systems: Review of system reviewed and within normal limits except mentioned in HPI ED Exam Narrative Physical exam: VITAL SIGNS: Reviewed. GENERAL APPEARANCE: Alert and interactive, follows commands, no acute distress, HEAD AND FACE: Non-traumatic. ENT: PERRL, pink conjunctivitis, eyelid no trauma, Mucous membrane moist. NECK: Supple, nontender, no nuchal rigidity. CHEST: No tenderness, no crepitus, no paradoxical movement, no retractions. LUNGS: Clear, well ventilated, symmetric, no rales, no wheezing, no ronchi, no stridor, good breath sounds bilaterally. HEART: Regular rate, regular rhythm, no murmur, no gallops. ABDOMEN: Soft, positive bowel sounds, nondistended, no guarding, nontender, no rebound, no masses, RECTAL: Deferred. GENITAL: Deferred. NEUROLOGICAL: Gross motor function intact sensory function intact, Appropriate for age. MUSCULOSKELETAL: low back nontender, full range of motion. EXTREMITIES: Nontender, full range of motion. SKIN: Color pink, dry, no rash, no lacerations, no abrasions, no contusions. LYMPHATICS: Deferred. Course Quality Measures none Orders Category Date Time Status EKG (ED ONLY) *Do not use* NOW Care 12/30/24 10:[address] head/brain wo con Stat Exams 12/30/24 10:20 Completed EKG (ED Only) Stat Exams 12/30/24 10:20 Draft XR chest 2V Stat Exams 12/30/24 10:20 Completed CBC Stat Lab 12/30/24 11:00 Completed Comprehensive Metabolic Panel Stat Lab 12/30/24 11:00 Completed Troponin I Stat Lab 12/30/24 11:00 Completed Acetaminophen Tab [Tylenol ES Tab] Med 12/30/24 11:48 Discontinued 1,000 mg PO X1 ONE cloNIDine HCL [Catapres] Med 12/30/24 13:17 Discontinued 0.2 mg PO X1 ONE hydrALAZINE HCL [Apresoline] Med 12/30/24 11:48 Discontinued 50 mg PO X1 ONE Vital Signs Vital signs: Vital Signs Temperature 98.2 F 12/30/24 10:04 Pulse Rate 66 12/30/24 10:04 Respiratory Rate 18 12/30/24 10:04 Blood Pressure 194/78 H 12/30/24 10:04 Pulse Oximetry (%) 96 12/30/24 10:04 Oxygen Delivery Method Nasal Cannula 12/30/24 10:04 Oxygen Flow Rate 2 12/30/24 10:04 Discharge Plan Plan Patient Disposition: HOME (Self Care) Discharge Disposition comment: Stable Prescriptions/Referrals Prescriptions/Med Rec: No Action citalopram 20 mg tablet 20 mg PO QDAY Qty: 14 0RF levothyroxine 25 mcg tablet 25 mcg PO QAM insulin glargine [Lantus Solostar U-100 Insulin] 100 unit/mL (3 mL) insulin pen 30 unit SUBCUT HS furosemide 40 mg tablet 40 mg PO QDAY Ozempic 0.25 mg or 0.5 mg (2 mg/3 mL) pen injector 0.25 mg SUBCUT .q wednesday propranolol 20 mg tablet 20 mg PO QDAY metformin 1,000 mg tablet 1,000 mg PO BID diltiazem HCl 120 mg capsule,extended release 24 hr 120 mg PO DAILY baclofen 10 mg tablet 10 mg PO BID PRN (Reason: muscle spasm) acetaminophen 500 mg capsule 500 mg PO Q4H PRN (Reason: pain) Eliquis 5 mg tablet 5 mg PO BID 30 Days Qty: 60 3RF Rx Instructions: Take one tablet two times a day tizanidine 2 mg tablet 2 mg PO Q8H PRN (Reason: muscle spasticity) 30 Days Qty: 90 0RF Rx Instructions: Take one tablet every 8 hours as needed for muscle spasm magnesium oxide 400 mg magnesium capsule 400 mg PO BID Qty: 14 0RF pantoprazole [Protonix] 40 mg tablet,delayed release (DR/EC) 40 mg PO QDAY Qty: 30 0RF pantoprazole [Protonix] 40 mg tablet,delayed release (DR/EC) 40 mg PO QDAY Qty: 30 0RF ondansetron 4 mg tablet,disintegrating 4 mg PO QDAY Qty: 10 0RF dicyclomine 10 mg capsule 10 mg PO TID Qty: 30 0RF diltiazem HCl 180 mg capsule,extended release 24hr 180 mg PO QAM MDD 1 Qty: 30 0RF Referrals: Mariia Beckford PA-C [Primary Care Provider] - In 1 week Problem List Clinical Impression: Hypertensive urgency Patient/Caregiver Discharge Instructions Discharge Activity: activity as tolerated Education Materials: ED High Blood Pressure ... Additional Instructions: Thank you for the opportunity for serving you today. You are stable for discharged . You are advised to: Follow-up with your PCP in 1 to 2 days regarding your blood pressure issues Return to ED for worsening of symptoms Increase oral fluids Your workup today all came back unremarkable including cardiac workup. You may take Tylenol as needed for headache Print Language: Estonian Stand Alone Forms: [employer] Award Info., Patient Portal Info Letter DALTON/JAMES Supervising Physician DALTON/JAMES Supervising Physician: MD Jadyn [facility] Narrative MDM hospital course: 69-year-old female patient came in for evaluation regarding elevated blood pressure. Patient's been having elevated blood pressure since yesterday, associated with headache, described as dull ache, severity moderate. Patient took her diltiazem and propranolol this morning still having elevated blood pressure. Denies any chest pain denies any neck pain denies any other complaints no medications taken prior to arrival. Patient's laboratory workup all came back normal, CT scan head came back unremarkable. I personally reviewed and interpreted the x-ray of this patient. There is no acute abnormalities found, no infiltrates no pneumothorax no hemothorax normal chest x-ray. Review of other structures was without significant abnormal findings also. I additionally reviewed the radiologist report and agree with the interpretation. EKG shows sinus rhythm, ventricular rate of 63 bpm, no ST segment elevation or depression noted. EKG shows sinus rhythm, ventricular rate of 63 bpm, no ST segment elevation or depression noted. Patient was given Tylenol and hydralazine for blood pressure above 200 systolic. Blood pressure was noted to be 161/69, heart rate of 60 bpm prior to discharge. Patient is not having any headache. Was advised to closely follow-up with PCP regarding adjustment of her blood pressure medication. Medication Administration(s) Medication Administration History Discontinued Medications Acetaminophen (Acetaminophen 500 Mg Tablet) 1,000 mg PO X1 ONE Stop: 12/30/24 11:49 Last Admin: 12/30/24 11:57 Dose: 1,000 mg Documented By: EDWIN Clonidine (Clonidine Hcl 0.1 Mg Tablet) 0.2 mg PO X1 ONE Stop: 12/30/24 13:18 Last Admin: 12/30/24 13:23 Dose: 0.2 mg Documented By: EDWIN Hydralazine HCl (Hydralazine Hcl 25 Mg Tablet) 50 mg PO X1 ONE Stop: 12/30/24 11:49 Last Admin: 12/30/24 11:56 Dose: 50 mg Documented By: EDWIN Diagnosis Differential diagnosis: Hypertensive urgency, headache,
[2024-12-30 11:56] VITALS: BP 220/94; PULSE 62
[2024-12-30] MEDS: ACETAMINOPHEN 500 MG TABLET 1000 MG PO (11:57)
[2024-12-30 13:17] VITALS: BP 203/95; PULSE 67; RESP 18; O2SAT 98
[2024-12-30 13:23] VITALS: BP 214/77; PULSE 74
[2024-12-30 14:25] VITALS: BP 161/69; PULSE 60; RESP 19; TEMP 36.6; O2SAT 98
== END 2024-12-30 15:05 | disposition home or self-care (01) ==
PROVIDERS: Nurse Practitioner Primary Care; Emergency Provider Family Medicine; PCP Physician Assistant
DX: I16.0 Hypertensive urgency (principal); I10 Essential (primary) hypertension; R51.9 Headache, unspecified
CPT/HCPCS: 36415; 70450; 71046; 80053; 84484; 85025; 93005; 99283; A9270

== ENCOUNTER 2025-02-13 10:19 | Emergency (ER) | payer MEDICARE, MEDICAID, SELFPAY ==
[2025-02-13 11:13] VITALS: BP 188/95; PULSE 68; RESP 18; TEMP 37.1; O2SAT 96
--- NOTE | 2025-02-13 11:24 | XR_ITS ---
Examination: Cervical spine 4 views. TECHNIQUE: AP lateral, swimmer's lateral, AP odontoid cervical spine 3 views Date and time: February 13, 2025 at 1142 hours INDICATIONS: Left-sided neck pain beginning today. FINDINGS: Satisfactory alignment cervical vertebral bodies. No cervical fracture. Early degenerative disc disease C5-C6 with mild posterior osteophyte formation IMPRESSION: Early degenerative disc disease C5-C6
--- NOTE | 2025-02-13 11:24 | XR_ITS ---
Examination: PA lateral chest 2 views TECHNIQUE: Upright AP lateral chest 2 views Date and time: February 13, 2025, 1144 hours INDICATIONS: High blood pressure and chest pain today. FINDINGS: Mild prominence left ventricle. No pneumonia or pulmonary edema Moderate thoracic spondylosis. IMPRESSION: No active disease.
--- NOTE | 2025-02-13 11:24 | EKG_ITS ---
[facility] Test Date: 2025-02-13 Pat Name: PRABHU LANDIN Department: Room: - Gender: Female Supervisor Reclamation: : 1955 Requested By: Jeff Hernadez Order Number: [id number] Reading MD: Jeff Hernadez Measurements Intervals [place] Rate: 66 P: 7 AK: 222 QRS: 18 QRSD: 92 T: 53 QT: 387 QTc: 407 Interpretive Statements SINUS RHYTHM WITH FIRST DEGREE AV BLOCK Compared to ECG 12/30/2024 10:35:47 First degree AV block now present /[id number]
--- NOTE | 2025-02-13 11:25 | PD.EDDIZZY ---
ED Dizzyness RME/HPI General Chief Complaint: Neck Pain/Injury Stated Complaint: NECK PAIN, HIGH BP 233/ , DIZZINESS Time Seen by Provider: 02/13/25 11:08 Source: patient Arrival date/time: 02/13/25 10:19 70-year-old female with a history of hypertension, hyper lipidemia, type 2 diabetes presents to the emergency room with a chief complaint of an elevated blood pressure reading at her primary care provider's office today, dizziness, neck pain x 3 days Mode of arrival: ambulatory Limitations: no limitations Related Data Home Medications ?Medication ?Instructions ?Recorded ?Confirmed acetaminophen 500 mg capsule 500 mg PO Q4H PRN pain 12/01/24 12/01/24 baclofen 10 mg tablet 10 mg PO BID PRN muscle spasm 12/01/24 12/01/24 diltiazem HCl 120 mg capsule,24 120 mg PO DAILY 12/01/24 12/01/24 hr,extended release furosemide 40 mg tablet 40 mg PO QDAY 12/01/24 12/01/24 insulin glargine 100 unit/mL (3 30 unit subcut HS 12/01/24 12/01/24 mL) subcutaneous pen (Lantus Solostar U-100 Insulin) levothyroxine 25 mcg tablet 25 mcg PO QAM 12/01/24 12/01/24 metformin 1,000 mg tablet 1,000 mg PO BID 12/01/24 12/01/24 propranolol 20 mg tablet 20 mg PO QDAY 12/01/24 12/01/24 semaglutide 0.25 mg or 0.5 mg (2 0.25 mg subcut .q wednesday12/01/24 12/01/24 mg/3 mL) subcutaneous pen injector (Ozempic) Previous Rx's ?Medication ?Instructions ?Recorded citalopram 20 mg tablet 20 mg PO QDAY #14 tabs 09/27/18 dicyclomine 10 mg capsule 10 mg PO TID #30 caps 11/27/24 ondansetron 4 mg disintegrating 4 mg PO QDAY #10 tabs 11/27/24 tablet pantoprazole 40 mg tablet,delayed 40 mg PO QDAY #30 tabs 11/27/24 release (Protonix) apixaban 5 mg tablet (Eliquis) 5 mg PO BID DVT 30 days #60 tabs 12/02/24 magnesium oxide 400 mg PO BID #14 caps 12/13/24 pantoprazole 40 mg tablet,delayed 40 mg PO QDAY #30 tabs 12/13/24 release (Protonix) diltiazem HCl 180 mg 180 mg PO QAM hypertension #30 caps 12/22/24 capsule,extended release 24 hr cyclobenzaprine 10 mg tablet 10 mg PO TID #14 tabs 02/13/25 Allergies Allergy/AdvReac Type Severity Reaction Status Date / Time codeine Allergy Severe Anxiety Verified 02/13/25 10:22 hydrocodone Allergy Severe Anxiety Verified 02/13/25 10:22 Review of Systems Review of Systems Systems Reviewed: All systems reviewed, normal except as documented Eyes Eyes: Reports system reviewed and no additional complaints, except as documented, Denies blurry vision and Denies change in vision ENT Ears, Nose, Mouth, and Throat: Reports system reviewed and no additional complaints, except as documented, Denies otalgia, Denies nasal congestion, Reports neck pain, Denies throat swelling and Denies vertigo Cardiovascular Cardiovascular: Reports system reviewed and no additional complaints, except as documented, Denies chest pain, Denies dyspnea and Denies dyspnea on exertion Respiratory Respiratory: Reports system reviewed and no additional complaints, except as documented, Denies chest congestion, Denies cough, Denies dyspnea, Denies dyspnea on exertion and Denies wheezing Gastrointestinal Gastrointestinal: Reports system reviewed and no additional complaints, except as documented, Denies abdominal pain, Denies cramping, Denies nausea and Denies vomiting Genitourinary Genitourinary: Reports system reviewed and no additional complaints, except as documented Musculoskeletal Musculoskeletal: Reports system reviewed and no additional complaints, except as documented, Denies back pain and Reports neck pain Integumentary/Breasts Skin/Breast: Reports system reviewed and no additional complaints, except as documented and Denies wounds Neurologic Neurologic: Reports system reviewed and no additional complaints, except as documented, Denies confusion, Denies lack of coordination and Denies vertigo Psychiatric Psychiatric: Reports system reviewed and no additional complaints, except as documented, Denies anxiety, Denies confusion, Denies depression, Denies paranoia, Denies suicidal ideation and Denies tactile hallucinations Endocrine Endocrine: Reports system reviewed and no additional complaints, except as documented Hematologic/Lymphatic Hematologic/Lymphatic: Reports system reviewed and no additional complaints, except as documented and Denies lymphadenopathy Allergic/Immunologic Allergic/Immunologic: Reports system reviewed and no additional complaints, except as documented, Denies throat swelling, Denies urticaria and Denies wheezing ED Exam General Limitations: Present no limitations General appearance: Present alert, in no apparent distress and lethargic; Absent obtunded Head Head exam: Present atraumatic Eye Eye exam: Present normal appearance, PERRL and EOMI ENT ENT exam: Present normal exam, normal oropharynx and mucous membranes moist Neck Neck exam: Present normal inspection, full ROM, trachea midline and tenderness; Absent meningismus, lymphadenopathy or thyromegaly Expanded Neck Exam Neck exam focused ED: Present midline tenderness; Absent paraspinal tenderness, tenderness (other), tracheal deviation, anterior neck swelling, thyroid enlargement, JVD or carotid bruit Chest Chest inspection: Present normal inspection and symmetric chest wall rise Respiratory Respiratory exam: Present normal lung sounds bilaterally; Absent respiratory distress, wheezes, stridor, accessory muscle use or prolonged expiratory phase Cardiovascular Cardiovascular exam: Present regular rate, normal rhythm and normal heart sounds Abdominal Exam Abdominal exam: Present soft and normal bowel sounds; Absent tenderness Extremities Exam Extremities exam: Present normal inspection and full ROM Back Exam Back exam: Present normal inspection and full ROM Neurological Exam Neurological exam: Present alert, oriented X3 and CN II-XII intact Expanded Neurological Exam Patient oriented to: Absent person, place or time Speech: Present total aphasia Motor strength - LUE: 0/5 Motor strength - RUE: 0/5 Motor strength - LLE: 0/5 Motor strength - RLE: 0/5 Coma scale eye opening: spontaneous Coma scale motor response: abnormal flexion Coma scale verbal response: none Coma scale total: 8 Psychiatric Psychiatric exam: Present normal affect and normal mood Skin Skin exam: Present warm, dry, intact and normal color Course Quality Measures none Orders Category Date Time Status EKG (ED ONLY) *Do not use* NOW Care 02/13/25 11:24 Completed EKG (ED Only) Stat Exams 02/13/25 11:24 Draft XR cervical spine 2-3V Stat Exams 02/13/25 11:24 Completed XR chest 2V Stat Exams 02/13/25 11:24 Completed B-Type Natriuretic Peptide Stat Lab 02/13/25 11:34 Completed CBC Stat Lab 02/13/25 11:34 Completed Comprehensive Metabolic Panel Stat Lab 02/13/25 11:34 Completed Partial Thromboplastin Time Stat Lab 02/13/25 11:34 Completed Prothrombin Time with INR Stat Lab 02/13/25 11:34 Completed Troponin I Stat Lab 02/13/25 11:34 Completed Vital Signs Vital signs: Vital Signs Temperature 98.8 F 02/13/25 11:13 Pulse Rate 68 02/13/25 11:13 Respiratory Rate 18 02/13/25 11:13 Blood Pressure 188/95 H 02/13/25 11:13 Pulse Oximetry (%) 96 02/13/25 11:13 Oxygen Delivery Method Room Air 02/13/25 11:13 O2 saturation 96% within normal limits Dizziness MDM Narrative MDM Narrative:: 70-year-old female with a history of hypertension, hyper lipidemia, type 2 diabetes presents to the emergency room with a chief complaint of an elevated blood pressure reading at her primary care provider's office today, dizziness, neck pain x 3 days Patient is hemodynamically stable and in no apparent distress Physical examination shows some point tenderness to the center of the cervical area of her neck. Patient also has an osteophyte formation. An x-ray of the cervical neck was completed which shows some degenerative disc disease Patient is also having some dizziness. Patient has a strong and regular rhythm. Patient has clear bilateral lung sounds no wheezing stridor or any abnormal breath sounds CBC CMP and troponin were within normal limits Patient was discharged and educated to follow-up with primary care provider in the next 24 to 48 hours and return to the emergency room for any evidence of worsening signs or symptoms Patient data External records reviewed:: [facility] previous records Clinical information provided by:: patient Social determinants that could affect healthcare access:: none Patient has the following chronic illnesses:: Hypertension How is presenting disease/condition affected by chronic disease/condition?: exacerbated by Evaluation data The following diagnostics were reviewed and interpreted by me:: lab results and radiology exam(s) Lab and/or radiology exams considered but not ordered:: Labs and radiology exams considered and ordered Interpretation Summary: X-ray cervical neck-FINDINGS: Satisfactory alignment cervical vertebral bodies. No cervical fracture. Early degenerative disc disease C5-C6 with mild posterior osteophyte formation IMPRESSION: Early degenerative disc disease C5-C6 Medications / Prescriptions Medications or Prescriptions considered but not ordered:: Medication given Medication administrations:: No medication given Consultations Consultation(s) initiated? (list below): No Diagnosis Dizziness Differential Diagnosis: benign paroxysmal positional vertigo, orthostatic hypotension and other (Strain of neck, disc disorder cervical region) Most likely diagnosis given after review of the tests above:: Disorder cervical region Admission Indicated Admission indicated?: not indicated Admission Request Was there a request for admission?: No Disposition Plan Disposition Plan: Discharge Discharge Attestation Discharge Attestation: The patient and all family members were given an opportunity to ask questions and understood the discharge instructions. Discharge instructions specifically effects, indications for sooner follow up or return to the emergency department, and the expected course of current diagnosis. Patient condition: Stable Discharge Plan Plan Patient Disposition: HOME (Self Care) Discharge Disposition comment: Stable Prescriptions/Referrals Prescriptions/Med Rec: New cyclobenzaprine 10 mg tablet 10 mg PO TID Qty: 14 0RF No Action citalopram 20 mg tablet 20 mg PO QDAY Qty: 14 0RF levothyroxine 25 mcg tablet 25 mcg PO QAM insulin glargine [Lantus Solostar U-100 Insulin] 100 unit/mL (3 mL) insulin pen 30 unit SUBCUT HS furosemide 40 mg tablet 40 mg PO QDAY Ozempic 0.25 mg or 0.5 mg (2 mg/3 mL) pen injector 0.25 mg SUBCUT .q wednesday propranolol 20 mg tablet 20 mg PO QDAY metformin 1,000 mg tablet 1,000 mg PO BID diltiazem HCl 120 mg capsule,extended release 24 hr 120 mg PO DAILY baclofen 10 mg tablet 10 mg PO BID PRN (Reason: muscle spasm) acetaminophen 500 mg capsule 500 mg PO Q4H PRN (Reason: pain) Eliquis 5 mg tablet 5 mg PO BID 30 Days Qty: 60 3RF Rx Instructions: Take one tablet two times a day magnesium oxide 400 mg magnesium capsule 400 mg PO BID Qty: 14 0RF pantoprazole [Protonix] 40 mg tablet,delayed release (DR/EC) 40 mg PO QDAY Qty: 30 0RF pantoprazole [Protonix] 40 mg tablet,delayed release (DR/EC) 40 mg PO QDAY Qty: 30 0RF ondansetron 4 mg tablet,disintegrating 4 mg PO QDAY Qty: 10 0RF dicyclomine 10 mg capsule 10 mg PO TID Qty: 30 0RF diltiazem HCl 180 mg capsule,extended release 24hr 180 mg PO QAM MDD 1 Qty: 30 0RF Referrals: Kirit Henderson MD [Primary Care Provider] - In 1 week Problem List Clinical Impression: Disc disorder of cervical region, Strain of neck muscle Patient/Caregiver Discharge Instructions Education Materials: ED Degenerative Disk Disease, ED Neck Sprain or Strain Additional Instructions: Lambert un seguimiento con reich proveedor de atenci?n primaria en las pr?ximas 24 a 48 horas. Se completaron radiograf?as de reich zachary y resultaron negativas para cualquier hallazgo caroline. Tambi?n se complet? un examen card?aco que estuvo dentro de los l?mites normales. Creo que reich dolor de zachary se debe a la formaci?n de osteofitos en el zachary. Lambert un seguimiento con reich proveedor de atenci?n primaria para un mayor control de reich dolor de zachary. Ante cualquier evidencia de empeoramiento de los signos o s?ntomas, regrese a la michael de emergencias de inmediato. Print Language: Kenyan Stand Alone Forms: Demi Award Info., Patient Portal Info Letter PA/GUIDE TOUR Supervising Physician PA/GUIDE TOUR Supervising Physician: Dr. Jade
[2025-02-13 12:02] LABS: Basophils # (Auto) 0.0 Thou/mm3 (0.0-0.2); Basophils % (Auto) 0 % (0-2.5); Eosinophils # (Auto) 0.1 Thou/mm3 (0.0-0.5); Eosinophils % (Auto) 1 % (0-10); Hematocrit 41.5 % (36.0-46.0); Hemoglobin 13.6 g/dL (12.0-16.0); Immature Granulocytes Auto 0.04 Thou/mm3 (0.00-0.00); Lymphocytes # (Auto) 3.1 Thou/mm3 (1.0-4.8); Lymphocytes % (Auto) 27 % (10-50); Mean Corpuscular HGB Conc 32.8 g/dl (31.0-37.0); Mean Corpuscular Hemoglobin 30.8 pg (25.0-35.0); Mean Corpuscular Volume 94 fL (80-100); Monocytes # (Auto) 0.6 Thou/mm3 (0.0-0.8); Monocytes % (Auto) 5 % (0-12); Neutrophils # (Auto) 7.5 Thou/mm3 (1.8-7.7); Neutrophils % (Auto) 66 % (37-80); Nucleated Red Blood Cell # 0.00 Thou/mm3 (0.00-0.00); Nucleated Red Blood Cell % 0 /100 WBC (0); Platelet Count 227 Thou/mm3 (140-440); RDW Standard Deviation 47.9 fL (36.4-46.3); Red Blood Count 4.42 Miln/mm3 (4.00-5.20); White Blood Count 11.4 Thou/mm3 (3.6-11.0)
[2025-02-13 12:09] LABS: B-Type Natriuretic Peptide 34 pg/mL (0-100); INR 1.0 (0.9-1.3); Partial Thromboplastin Time 25.9 Seconds (22.0-36.0); Prothrombin Time 11.0 Seconds (9.0-12.2)
[2025-02-13 12:12] LABS: Alanine Aminotransferase 14 U/L (10-49); Albumin, Serum 4.2 gm/dL (3.4-4.8); Albumin/Globulin Ratio 1.6 (1.2-2.2); Alkaline Phosphatase 123 U/L (46-116); Anion Gap 10 (7-16); Aspartate Amino Transferase 15 U/L (0-34); BUN/Creatinine Ratio 13 Ratio (12-20); Bilirubin,Total 0.5 mg/dL (0.3-1.2); Blood Urea Nitrogen 9 mg/dL (9-23); Calcium 9.9 mg/dL (8.3-10.6); Calcium (Corrected) 9.9 mg/dL (8.5-10.1); Carbon Dioxide 28.3 mMol/L (20.0-31.0); Chloride 103 mMol/L (98-107); Creatinine (Component) 0.7 mg/dL (0.6-1.3); Estimated Creatinine Clearance 76.8 mL/min (>60); Globulin 2.7 gm/dL (2.3-3.5); Glucose 166 mg/dL (74-106); Osmolality,Calculated 283 (275-295); Potassium 4.1 mMol/L (3.4-5.1); Sodium 141 mMol/L (136-145); Total Protein 6.9 gm/dL (5.7-8.2); Troponin I < 0.002 ng/mL (0.0-0.045); eGFR > 60 See Note
== END 2025-02-13 14:00 | disposition home or self-care (01) ==
PROVIDERS: Nurse Practitioner Family; Emergency Provider Emergency Medicine; PCP Family Medicine
DX: S16.1XXA Strain of muscle, fascia and tendon at neck level, initial encounter (principal); M50.322 Other cervical disc degeneration at C5-C6 level; M25.78 Osteophyte, vertebrae; I44.0 Atrioventricular block, first degree; I10 Essential (primary) hypertension; X58.XXXA Exposure to other specified factors, initial encounter
CPT/HCPCS: 36415; 71046; 72040; 72050; 80053; 83880; 84484; 85025; 85610; 85730; 93005; 99283